=== PATIENT | male | born 1950 | race Caucasian/White ===

== ENCOUNTER 2022-11-21 13:02 | Emergency (ER) | payer OTHER, SELFPAY ==
--- NOTE | 2022-11-21 13:09 | W.ED.GENAD ---
Discharge Plan Disposition Patient Disposition: Home Discharge Details Clinical Impression: Inguinal hernia, left, Acute lactic acidosis, New onset type 2 diabetes mellitus Primary Care Provider: Mary Lou Trevino V ED Provider: Dg Paris Home Meds and New Rx's Prescriptions: New metformin 500 mg tablet 500 mg PO BID Qty: 60 0RF Discharge Instructions Instructions: Basic Carbohydrate Counting (DC), Meal Planning with Diabetes Exchanges (DC) Additional Instructions: Please read all of the information that accompanies these instructions. You were seen in the emergency department for your abdominal pain. Your CAT scan shows that you have signs of a hernia but no sign of any dangerous complications from your hernia at the moment. You are also found to have diabetes for which you should take this new medication as directed. If you develop diarrhea nausea or vomiting or cannot handle this medication please discontinue. Please schedule an appointment with your primary care provider next week. Please return to the emergency department if your left inguinal hernia causes you to have acute severe pain that does not stop, if you notice any skin changes over your hernia, or if you begin developing nausea and vomiting that does not stop. Medical Decision Making This is an overall well-appearing normothermic and not tachycardic 72-year-old male with left inguinal tenderness and known hernia concerning for intermittent obstruction. Patient has not been vomiting so I do not feel that he is acutely obstructed as result of incarceration. No skin changes to suggest strangulated hernia. No rash to suggest zoster. No history of diabetes nor any scrotal tenderness to suggest Jailyn's gangrene. No history of ureterolithiasis although this is certainly in the differential so we will obtain a CT scan. No dysuria nor frequency to suggest UTI. No history of trauma to suggest bleeding. Diverticulitis is also in the differential given left lower quadrant tenderness. No left upper quadrant tenderness to suggest splenic arterial aneurysm. No shortness of breath nor cough to suggest pneumonia. 1:45 PM CBC with no anemia thrombocytopenia nor leukocytosis. Mild lactic acidosis at 1.7 mmol/L. 2 PM Labs notable for marked hyperglycemia. No anion gap to suggest DKA. Normal renal function. We will add on hemoglobin A1c. 2:40 PM Hemoglobin A1c returned at 11.4% consistent with diabetes. We will reach out to the patient's PCP, . Concerning the note above patient does now have diabetes. He is not having any scrotal tenderness to suggest Jailyn's gangrene and his CAT scan is reassuring against foreign years. 2:54 PM Patient's PCP was unfortunately not available. Patient had not seen his PCP reportedly since 2000. I spoke with Cuco Plasencia with nurse from the patient's PCP office at [facility]. I advised her that I was going to start the patient on metformin 500 mg twice daily. I have asked Mara to help arrange close outpatient follow-up for the patient. I met with the patient and advised him of return indications for incarceration and strangulation. I also advised that he would need to begin adhering to a diabetic diet and I counseled him on low carbohydrates and provided him with discharge instructions for diabetic diet. I advised him of the side effects of metformin including diarrhea nausea and vomiting. I advised that if he was intolerant of this medication at he should discontinue it but follow-up with his PCP. I also advised that he return to the emergency department if he had any sudden worsening of his abdominal pain, began vomiting or had any skin changes in his left lower quadrant. 3:15 PM I spoke to Dr. Guerrero from general surgery and she was amenable to help to arrange outpatient follow-up for this patient. I have asked for neonatal intensive care nurse or certified social workers in health care to come to meet with the patient concerning his new diagnosis of diabetes. Unfortunately none of the current care managers our nurse educators. There is a certified social workers in health care who has been paged but it is Thursday afternoon and my suspicion is that the certified social workers in health care has left for the weekend. If I do not hear back from the certified social workers in health care by 3:30 PM I will put the patient up for discharge. 3:30 PM Unfortunately a certified social workers in health care was not available so the patient was discharged in the ED. HPI General Date/Time Provider Initiated Documentation: 11/21/22 13:09. HPI Narrative: This is a 72-year-old male with a history of left inguinal hernia now with left lower quadrant pain for the past approximately 1 week. He was diagnosed with a left inguinal hernia 15 years ago. He has not had a repair of this hernia however at age 11 he had a right inguinal hernia that was surgically corrected. He also has remotely had an appendectomy at the age of 14. He last ate at 10 AM this morning. He has not been nauseous vomiting nor had any fevers diarrhea dysuria nor frequency. He has not noticed any skin changes. He has not had any scrotal tenderness. He says that his left lower quadrant pain radiates into his left buttocks. He did not take any falls. Related Data Home Medications Medication Instructions Recorded Confirmed metformin 500 mg tablet 500 mg PO BID #60 tabs 11/21/22 Previous Rx's Medication Instructions Recorded metformin 500 mg tablet 500 mg PO BID #60 tabs 11/21/22 Allergies Allergy/AdvReac Type Severity Reaction Status Date / Time No Known Allergies Allergy Unverified 11/21/22 13:17 [facility] All Active Problems (Updated 11/21/22 @ 14:42 by Dg Paris MD) Inguinal hernia, left (Acute) Acute lactic acidosis (Acute) New onset type 2 diabetes mellitus (Acute) Surgical History (Updated 11/21/22 @ 13:17 by Analilia Merino RN) History of appendectomy age 14 History of hernia repair age 11 Social History Smoking/Tobacco Use Status: Never Smoking risk assessment performed?: Yes Alcohol Intake: never Substance use type: does not use Do you feel safe at home: Yes Do you feel safe in your relationship?: Yes Exam Narrative Exam Narrative: General: Well-appearing in no acute distress speaking in complete sentences. Head: Normocephalic, atraumatic. Eye: Pupils equal, round reactive to light. Extraocular eye movements intact. No conjunctival injection. No scleral icterus. Ear, nose, mouth, throat: Grossly normal inspection. Normal voice, handling secretions normally. Neck: Trachea midline. Cardiovascular: Well-perfused distal extremities. Regular rate and rhythm Respiratory: Nonlabored respiration. Clear lungs bilaterally Gastrointestinal: Nondistended abdomen. Left inguinal fullness. No obvious reducible hernia. No obvious skin changes. No rash to abdomen. Patient does have left lower quadrant tenderness on deep palpation. No rebound. No guarding. Musculoskeletal: No edema. Moving all 4 extremities spontaneously. Skin: Normal for age and race, grossly normal temperature and turgor. No acute rash. Neurologic: Alert and appropriate, no apparent acute deficits. Psychiatric: Mood and manner are appropriate. Grooming and personal hygiene are appropriate. POCUS Exam (ED) Limited Pelvic Exam DATE OF EXAM: 11/21/22 TIME OF EXAM: 13:40 IS THIS A REPEAT EXAM DURING THIS ENCOUNTER: No Type of Exam: Pelvic Trans Abdominal Exam (Concern for inguinal hernia) REASON FOR EXAM: Pelvic Pain PERTINENT FINDINGS/IMPRESSION: Other (No obvious inguinal hernia) impression: No obvious inguinal hernia Exam Complete
[2022-11-21 13:10] VITALS: BP 102/81; PULSE 90; RESP 20; TEMP 36.9; O2SAT 97
--- NOTE | 2022-11-21 13:15 | DI.CT_ITS ---
Exam(s) CT ABDOMEN PELVIS W EXAM: CT ABDOMEN PELVIS W CLINICAL HISTORY: Left inguinal pain radiating into buttocks. TECHNIQUE: Imaging Protocol: Axial computed tomography images with coronal and sagittal reformatted images were created and reviewed CONTRAST MATERIAL: Intravenous: Omnipaque 350 Contrast volume:100 ml Oral: no COMPARISON: US POCUS EXAM from 11/21/2022 FINDINGS: ABDOMEN: Lung Bases: Normal where visualized. Liver: Enlarged fatty liver.. No measurable mass. Gallbladder and biliary tract: Gallbladder contracted. No radiodense calculus or dilation. Pancreas: Normal density, no abnormal calcifications or inflammatory process. Spleen: Normal. Kidneys: Normal size, contour and axis. No radiodense stones or obstructive uropathy. No suspicious m asses seen. Adrenal glands: No masses seen. Abdominal Aorta: Abdominal portion non-dilated. Soft tissues: Fatty containing left inguinal hernia. PELVIS: Bladder: Urinary bladder is distended. No gross wall thickening. No calculi.No focal mass. Bowel: Diverticulosis. No evidence of diverticulitis. No obstruction. No bowel wall thickening. N o evidence of appendicitis. Peritoneal cavity: No ascites, collection or mesenteric inflammatory response. Bones: Degenerative changes in the spine. Reproductive organs: Enlarged prostate. Lymph nodes: Unremarkable. Impression: Fatty containing left inguinal hernia. Enlarged prostate and distended urinary bladder. Diverticulosis. No evidence of diverticulitis. Findings called to Dr. Paris of the emergency department. RADIATION DOSE DELIVERED: 780.9mGy.cm Total DLP DATA REPOSITORY: All CT scans at this facility are submitted to the National Radiology Data Registry (NRDR) Dose Index Registry (DIR) with the [employer] (ACR). RADIATION OPTIMIZATION: All CT scans at this facility use at least one of these dose optimization te chniques: automated exposure control; mA and/or kV adjustment per patient size (includes targeted exa ms where dose is matched to clinical indication); or iterative reconstruction.
[2022-11-21 13:37] LABS: Lactate 1.7 mmol/L (0.6-1.4)
[2022-11-21] MEDS: ACETAMINOPHEN 1,000 MG/100 ML BTL 400 MG IVPB (13:38)
[2022-11-21 13:40] LABS: Abs Immature Grans 0.01 10^3/uL (0.0-0.06); Absolute Basophil Count 0.03 10^3/uL (0.0-0.2); Absolute Eosinophil Count 0.13 10^3/uL (0.0-0.7); Absolute Lymphocyte Count 1.74 10^3/uL (1.2-3.4); Absolute Monocyte Count 0.58 10^3/uL (0.1-0.8); Absolute Neutrophil Count 3.15 10^3/uL (1.2-6.7); Basophils % 0.5; Eosinophils % 2.3; HCT 46.6 % (40.0-50.0); HGB 16.1 g/dL (13.5-17.5); Immature Grans % 0.2; Lymphocytes % 30.9; MCHC 34.5 % (32.0-36.0); MCV 84 fL (80-95); MPV 8.8 fL (8.0-11.0); Monocytes % 10.3; Neutrophils % 55.8; Platelet Count 214 10^3/uL (130-400); RBC 5.56 10^6/uL (4.36-5.78); RDW 12.8 % (11.8-14.1); RDW-SD 39.1 fL; WBC 5.64 10^3/uL (4.4-10.8)
[2022-11-21 13:57] LABS: Anion Gap 8.4 mmol/L (3-11); BUN 16 mg/dL (7-18); CO2 26.6 mmol/L (21.0-32.0); CREATININE 0.8 mg/dL (0.70-1.30); Calcium 9.6 mg/dL (8.5-10.1); Chloride 104 mmol/L (98-107); Estimated GFR 95.21 (mL/min/1.73m2); Glucose 356 mg/dL (74-106); Potassium 3.9 mmol/L (3.5-5.1); Sodium 139 mmol/L (136-145)
[2022-11-21] MEDS: Normal Saline 500 ML 250 ML IV (14:00)
[2022-11-21] MEDS: Normal Saline - Diluent 50 ML VIAL IJ (14:17)
[2022-11-21] MEDS: Omnipaque 350 MG/ML 500 ML BTL-Imaging package 100 ML IJ (14:18)
[2022-11-21] MEDS: Normal Saline Flush 10 ML SYR IVP (14:19)
[2022-11-21 14:34] LABS: Hemoglobin A1C 11.4 % (<5.7)
[2022-11-21 15:51] VITALS: BP 124/88; PULSE 85; RESP 18; O2SAT 98
== END 2022-11-21 15:57 | disposition home or self-care (01) ==
PROVIDERS: Emergency Provider Emergency Medicine; PCP Family Medicine
DX: K40.90 Unilateral inguinal hernia, without obstruction or gangrene, not specified as recurrent (principal); E87.21 Acute metabolic acidosis; E11.65 Type 2 diabetes mellitus with hyperglycemia; Z79.84 Long term (current) use of oral hypoglycemic drugs; Z90.49 Acquired absence of other specified parts of digestive tract
CPT/HCPCS: 80048; 96361; 96365; 99285; 74177; 83036; 83605; 85025; 99284; J0131

== ENCOUNTER 2023-01-28 06:03 | Day surgery (SDC) | payer OTHER, SELFPAY ==
[2023-01-28] VITALS (11 sets, daily range): BP systolic 96–149; BP diastolic 62–96; PULSE 54–77; RESP 14–95; TEMP 36–36.7; O2SAT 95–99; BMI 21.6
--- NOTE | 2023-01-28 06:27 | HPE_ITS ---
Assessment and Plan Assessment and plan (1) Right inguinal hernia: Status: Acute Assessment and plan: Mr. Del Angel is doing well today. Risks, benefits and complications have been reviewed. Complications include but are not limited to bleeding, infection, injury to vas, vessels and nerves, injury to bowel, recurrence (3-5%), chronic pain and adverse reaction to medications. Questions were entertained and answered to their satisfaction and they wished to proceed.? I did discuss with him that because of his newly diagnosed diabetes and high hemoglobin A1c he is at higher risk for infection and recurrence.? He is definitely working on his diet and using the metformin. He wished to proceed with LIH repair with mesh History of Present Illness Narrative: From Office note: Mr. Del Angel is a pleasant 72-year-old gentleman who was diagnosed with a left inguinal hernia about 15 years ago.? It never really bothered him until November 14.? He states that he went to bed on the without pain and then woke up the next day with a lump and pain in his left groin.? The pain radiated to his left hip, back and down his leg.? He went to the emergency department where no incarceration was diagnosed.? He was diagnosed with new onset diabetes.? He has been started on metformin and is on a diabetic diet.? His is a diabetic as well so she makes sure that he is on a low-carb diet.? He is having some diarrhea with the metformin.? He still works 4 days a week.? He does have to do some heavy lifting.? He has been on light duty at work since being seen in the emergency department.? He is having some mild discomfort now which radiates to the hip and back.? He is aware of the hernia at all times.? He is wearing a hernia belt while at work.? He has been checking his blood sugars now couple of times a day.? His blood sugars have been well below 200 unless he eats a big sandwich and then they will be above that.? He has been trying hard to stay on a low-carb diet. He did have a right inguinal hernia repair as a child.? He has no symptoms on the right side. He denies shortness of breath with activity or chest pain with activity. He was seen in [facility] on the day of his procedure. He is doing well. He has had no new symptoms since I saw him. No chest pain and no SOB. Review of Systems All systems reviewed & are unremarkable except as noted in HPI and below PFSH All Active Problems Right inguinal hernia (Acute) Medical History Acute lactic acidosis Surgical History History of appendectomy age 14 History of hernia repair age 11 Social History Smoking/Tobacco Use Status: Never Smoking risk assessment performed?: Yes Alcohol Intake: current Alcohol Intake frequency: holidays/special occasions only Alcohol type: beer Drug use: Never Substance use type: does not use Housing: house Current gender identity: male Do you feel safe at home: Yes (unable to assess privately) Do you feel safe in your relationship?: Yes Meds Allergies and Home Medications Allergies Allergy/AdvReac Type Severity Reaction Status Date / Time No Known Allergies Allergy Unverified 01/28/23 06:32 Home Medications Medication Instructions Recorded Confirmed Type Lysulin 6 cap PO DAILY 01/23/23 01/28/23 History Pharmapure Sugar Trin[place] 1 tab PO TID 01/23/23 01/28/23 History chromium 1,000 mcg tablet 1,000 mcg PO DAILY 01/23/23 01/28/23 History cinnamon bark 500 mg capsule 1,000 mg PO BID 01/23/23 01/28/23 History (Cinnamon) fenugreek seed 610 mg capsule 610 mg PO DAILY 01/23/23 01/28/23 History mmtidxgl-umjutoel-yhaxs acid 120 1 tab PO BID 01/23/23 01/28/23 History mcg-lutein 100 mcg-herb no.329 tablet (Alive Diabetic Multivitamin) Exam Const General: cooperative, comfortable and no acute distress Orientation: alert and oriented x3 HENMT Head: normocephalic and atraumatic Resp Effort & Inspection: normal respiratory effort Cardio Rate: regular rate Rhythm: regular rhythm GI Inspection: normal to inspection Palpation: soft and hernia (left inguinal hernia)
--- NOTE | 2023-01-28 06:33 | ROE_ITS ---
Date of service: 01/28/23 Time of Service: 12:11 Operative Note Operative Note DATE OF PROCEDURE: 01/28/23 PRE-OP DIAGNOSIS: LIH PROCEDURE: LIH repair with mesh SURGEON: Ayanna Kemp ESCROW CLERK: Claudia French Refer to Anesthesia Record COMPLICATIONS: None Patient was transported to: PACU Patient's condition: stable Implants: BARD Mesh- LOT- [id number] 2027-03-23 Indications: Mr. Del Angel is a pleasant 72 year old male with a reducible RIH. I saw him in the office and again today in [facility] and reviewed the procedure and the complications. Risks, benefits and complications have been reviewed. Complications include but are not limited to bleeding, infection, injury to vas, vessels and nerves, injury to bowel, recurrence (3-5%), chronic pain and adverse reaction to medications. Questions were entertained and answered to their satisfaction and they wished to proceed.? I did discuss with him that because of his newly diagnosed diabetes and high hemoglobin A1c he is at higher risk for infection and recurrence.? He is definitely working on his diet and using the metformin. Findings: Large directed hernia defect Procedure Description: After informed consent was obtained the patient was taken to the operating ro om and placed in a supine position. Monitors and SCDs were applied and a timeout was done. The patient's name, date of , procedure type, procedure site, allergies to medications, preoperative antibiotic, and DVT prophylaxis were all reviewed. Fire risk was assessed. Next anesthesia did a tap block on the left side under ultrasound guidance. Please see their separate dictation. Once anesthesia was done the abdomen was prepped and draped in a sterile surgical fashion. 0.25% Bupivocaine was injected into the dermis in the left lower quadrant. An incision was made with a 10 blade in the left lower quadrant. Dissection was done with cautery through the subcutaneous tissues and Francisco's fascia down to the external oblique fascia. The external ring was identified and the external oblique fascia was opened sharply through the external ring. The cut fascia was grasped with hemostats the cord structures were identified and a Sugar drain was placed around them. The ilioinguinal nerve was identified and cut. The cremasteric muscle was dissected away from the cord structures using both cautery and blunt dissection. There was a large direct hernia defect. No idirect defect was identified. A flat piece of mesh was then attached to the lacunar ligament using a 2-0 Prolene double armed suture. The mesh was secured laterally and medially with a 2-0 Prolene, with a running suture. The tails of the mesh were wrapped around the cord structures effectively cinching down the internal ring. Once the mesh was secured the tissues were irrigated with some normal saline. No bleeding was identified. The external oblique fascia was reapproximated using 2-0 Vicryl running suture. The Francisco's fascia was reapproximated using interrupted 3-0 Vicryl. The dermis was reapproximated with a running 4-0 Vicryl. The skin was cleaned and dried and skin affix was applied. The patient was woken up and taken back to recovery in stable condition. There were no immediate complications. Sponge, instrument and needle counts were correct at the end of the case x2.
--- NOTE | 2023-01-28 06:36 | W.PM.DSUDISC ---
Date of service: 01/28/23 Time of Service: 10:21 Discharge Plan Disposition Patient Disposition: Home Condition: Stable Discharge Details Reason For Visit: RIH repair Attending Provider: Ayanna Kemp Primary Care Provider: Mary Lou Trevino V Home Meds and New Rx's Prescriptions: New tramadol 50 mg tablet 50 mg PO Q6H PRNQty: 10 0RF Continued Lysulin 6 cap PO DAILY chromium 1,000 mcg Tablet 1,000 mcg PO DAILY cinnamon bark [Cinnamon] 500 mg Capsule 1,000 mg PO BID Alive Diabetic Multivitamin 120-100 mcg Tablet 1 tab PO BID fenugreek seed 610 mg Capsule 610 mg PO DAILY Pharmapure Sugar [place] 1 tab PO TID taurine 1,000 mg Capsule 1,000 mg PO BID Discharge Instructions Instructions: Inguinal Hernia Repair (DC) Additional Instructions: Activity at Home after surgery: 1. Make sure you walk outside at least 4 times per day 2. You should be able to climb a flight of stairs 3. No driving while in pain or taking pain medications 4. No strenuous activity or heavy lifting ( more then 5-10 lb) for 4 weeks (open surgery) Diet, Nutrition, & wound healin. Avoid alcohol until after you are recovered from your surgery 2. Make sure to eat plenty of lean protein (meat, fish, eggs, cottage cheese, beans) 3. Eat a variety of fruits and vegetables. Eat plenty of high fiber foods to avoid constipation. 4. Drink plenty of liquids to stay hydrated and avoid constipation Pain Medications: 1. Tylenol 650mg every 6 hours as needed and Ibuprofen 600 mg every 6 hours as needed. You may alternate between the 2 medications every 3 hours 2. If a narcotic has been prescribed take as directed only for breakthrough pain For Constipation: 1. Take Milk of Magnesia or MiraLax as needed for constipation Other: 1. You may shower daily. Do not scrub the incisions 2. Do not soak the incisions for 1 week 3. You may alternate ice and heat as needed for pain and swelling Wound Care: 1. Keep the incisions clean and dry Please call our office if you develop: 1. Fevers >101.5 2. Nausea or Vomiting 3. Worsening pain 4. Redness and thick discharge from the wounds If after hours please call the Hospital at and ask to speak to the on-call surgeon Stand Alone Forms: Anesthesia Discharge InstGeovanni, Nerve Block Instructions, Rome Capone (DSU) Referrals: Ayanna Kemp MD [ [facility] STAFF PHYSICIAN] - 02/09/23 9:30 am Activity:: as above Shower/Bathe:: 24 hours Diet:: As Tolerated Discharge Orders Discharge Orders: Discharge Order (Routine); Ordered 01/28/23 Ordered By: Ayanna Kemp DS: Diagnosis Discharge Diagnosis (1) Right inguinal hernia: Status: Acute Asessment and Plan: The patient is doing well post-op from their Left inguinal hernia surgery.? They are having no nausea or vomiting. They are tolerating liquids and a snack. The pt is not having any chest pain or SOB.? Their pain is adequately controlled. They have been able to urinate.? ?HEENT:? no eye pain/drainage/redness/swelling. Mild sore throat ?Cardio- NSR, no chest pain, BP stable- see VS record ?Pulm: no sob or productive cough. No hemoptysis ?Incision- dressing is c/d/i w/ no excessive bleeding or drainage ?I discussed with the patient the findings at the time of surgery and the patient?s progress. ?We reviewed expectations at home; what the patient could expect for recovery time, and in the post-operative period.? We discussed the importance of walking to avoid blood clots and pneumonia.? We discussed and reviewed the patient's post-operative wound care and dressing needs.?? We reviewed their step-duvall pain management plan, Rx called to the pharmacy of their choice.? We reviewed activity and limitations-see discharge instructions. We reviewed warning signs, and when to seek medical attention- see d/c instructions.?? Patient was given a postoperative follow-up appointment. Patient verbalized understanding of their postoperative instructions, how do to take care of themselves and their incision, and the pain management plan. Please see discharge instructions.?
[2023-01-28] MEDS: Celecoxib 200 MG CAP PO (06:45)
[2023-01-28] MEDS: Acetaminophen 500 MG TAB 1000 MG PO (06:45)
[2023-01-28] MEDS: Gabapentin 300 MG CAP 600 MG PO (06:45)
--- NOTE | 2023-01-28 06:54 | W.ANESPRE ---
General Info Date of Service Date Performed: 01/28/23 Height: 5 ft 9 in Weight: 66.4 kg Body Mass Index (BMI): 21.6 Surgical Procedure: Operation Date: 01/28/23 07:40 Proposed Procedure Side Surgeon p Herniorrhaphy Inguinal Left Ayanna Kemp MD Meds Allergies and Home Medications Allergies Allergy/AdvReac Type Severity Reaction Status Date / Time No Known Allergies Allergy Unverified 01/28/23 06:32 Home Medication Medication Instructions Recorded Lysulin 6 cap PO DAILY 01/23/23 Pharmapure Sugar [place] 1 tab PO TID 01/23/23 chromium 1,000 mcg tablet 1,000 mcg PO DAILY 01/23/23 cinnamon bark 500 mg capsule 1,000 mg PO BID 01/23/23 (Cinnamon) fenugreek seed 610 mg capsule 610 mg PO DAILY 01/23/23 pcaightl-[id number]-[id number] acid 120 1 tab PO BID 01/23/23 mcg-lutein 100 mcg-herb no.329 tablet (Alive Diabetic Multivitamin) taurine 1,000 mg capsule 1,000 mg PO BID 01/28/23 Current Visit Medications: Current Medications Generic Name Dose Route Start Last Admin Trade Name Freq PRN Reason Stop Dose Admin Acetaminophen 1,000 mg 01/28/23 06:00 01/28/23 06:45 Acetaminophen 500 Mg Tab PO 02/22/23 23:59 1,000 mg PREOP GIAN Administration Celecoxib 200 mg 01/28/23 06:00 01/28/23 06:45 Celecoxib 200 Mg Cap PO 02/22/23 23:59 200 mg PREOP GIAN Administration Gabapentin 600 mg 01/28/23 06:00 01/28/23 06:45 Gabapentin 300 Mg Cap PO 02/22/23 23:59 600 mg PREOP GIAN Administration Ringer's Solution 1,000 mls @ 80 mls/hr 01/28/23 06:00 IV 02/22/23 23:59 INFUSION GIAN Cefazolin Sodium/Dextrose 2 gm in 50 mls @ 100 mls/hr 01/28/23 06:00 Ancef Duplex IVPB 02/22/23 23:59 PREOP GIAN Ondansetron HCl 4 mg/ Sodium 52 mls @ 200 mls/hr 01/28/23 06:38 Chloride IVPB 02/27/23 06:37 Q6H PRN PRN IV Miscellaneous Supplies 1 each 01/28/23 06:00 Iv Access IV 02/22/23 23:59 DIRECTED GIAN Ibuprofen 600 mg 01/28/23 06:38 Ibuprofen 600 Mg Tab PO 02/27/23 06:37 Q6H PRN PRN Pain Sodium Chloride 0 ml 01/28/23 06:00 Normal Saline Flush 10 Ml Syr IV 02/22/23 23:59 PRN PRN Sodium Chloride 0 ml 01/28/23 06:00 Normal Saline 10 Ml Vial IJ 02/22/23 23:59 DIRECTED PRN Sterile Water 0 ml 01/28/23 06:00 Water,Injection,Sterile 10 Ml Vial IJ 02/22/23 23:59 DIRECTED PRN Tramadol HCl 50 mg 01/28/23 06:38 Tramadol 50 Mg Tab PO 02/27/23 06:37 Q6H PRN PRN Pain PFSH Active Problems Active Problems: Problem Status Onset Code Right inguinal hernia K40.90 Medical History Medical History Acute lactic acidosis Surgical History Surgical History History of appendectomy age 14 History of hernia repair age 11 Tobacco Smoking/Tobacco Use Status: Never Alcohol Alcohol Intake: current Alcohol intake frequency: holidays/special occasions only Alcohol type: beer Substance Use Substance use: Never Substance use type: does not use Vital Signs and Lab Results Vital Signs Most Recent Vital Signs in EMR: Most Recent Vital Signs Temp Pulse Resp BP Pulse Ox 36.3 C L 77 16 126/82 99 01/28/23 06:23 01/28/23 06:23 01/28/23 06:23 01/28/23 06:23 01/28/23 06:23 Lab Results Blood Type / Crossmatch: No Data to Display Complete Blood Count: No Data to Display Complete Metabolic Panel: No Data to Display Liver Function Panel: No Data to Display Coagulation Panel: No Data to Display Cardiac Panel: No Data to Display Arterial Blood Gas: No Data to Display Venous Blood Gas: No Data to Display Pancreas Panel: No Data to Display Thyroid Panel: No Data to Display Infectious Disease: No Data to Display Blood Cultures: No Data to Display Toxicology Panel: No Data to Display Anesthesia Assessment and Plan Anesthesia History Personal History: No History of Anesthesia Complications Family History: No Family History of Anesthesia Complications Exercise Tolerance Exercise Tolerance: Metabolic Equivalents>4 Pertinent Negatives Pertinent Negatives: No Symptoms of GERD, No Major Cardiovascular Symptoms or Complaints, No Major Pulmonary Symptoms or Complaints and No History of CVA/TIA Cardiac & Pulmonary Exam Cardiac Exam: Normal S1/S2 Heart Sounds Pulmonary Exam: Clear Bilateral Breath Sounds Implantable Cardiac Device Does patient have a Pacemaker or an ICD?: No Airway Exam Known Difficult Airway: No Mallampati Class: 3 Mouth Opening: Normal (> 3cm) Thyromental Distance: Greater than 3 cm Neck Range of Motion: Full ROM Neck Circumference: Normal Teeth Condition: Normal Dentition and Generalized Poor Dentition Tooth Numberin. missing 2. missing 3. missing 4. missing ASA Classification ASA Score: ASA 2 Emergency Case?: No NPO Status NPO Status: NPO Clears >2 hours, Solids >8 hours Anesthesia Plan Resuscitation Status: Full Code Anesthesia Technique: General Anesthesia Airway Planned: LMA Monitors Used: Standard Monitors Preoperative Comments:: Seizure disorder controlled with nightly taurine
[2023-01-28] MEDS: Lactated Ringers 1,000 ML 80 ML IV (07:09)
[2023-01-28] MEDS: ceFAZolin 2 GM/50 ML BAG IVPB (07:46)
--- NOTE | 2023-01-28 08:00 | W.ANESNERVE ---
Nerve Block Single Injection Procedure Date and Time Date Performed: 01/28/23 Procedure Start: 07:50 Location Where Procedure Performed Procedure Location: Operating Room Procedure Stop: 07:58 Reason Performed: Postoperative Analgesia Requesting Provider: Ayanna Kemp Timeout Performed Timeout Performed: Yes Monitoring Used ECG, Blood Pressure, SpO2 and ETCO2 Sterility Sterility: Hand Hygiene, Surgical Cap, Surgical Mask, Sterile Gloves and Chlorhexidine Sedation Given During Procedure Sedation Given (Indicate Dose Given): No Sedation given Patient Mental Status Patient Mental Status: Performed under general anesthesia Nerve Block 1st Nerve Block: Laterality: Left Block Type: TAP Unilateral Ultrasound Image Saved?: Yes Needle / Catheter Used: 100mm SonoPlex II Local Anesthetic Bolus (Indicate Dose Given): Injected in 3-5ml increments after negative blood aspiration and Bupivacaine 0.25% Dose:: 20 ml Additives (Indicate Dose Given): Normal Saline Ultrasound: Sterile probe cover and gel used Nerve Stimulator: Not Used Paresthesia: None Procedure Tolerated: No Complications and Patient tolerated well Procedure Outcome: Successful Performed By: Vimal Prakash
[2023-01-28] MEDS: Bupivacaine 0.25% Pres-Free 30 ML VIAL (08:38)
--- NOTE | 2023-01-28 09:49 | W.ANESNERVE ---
Nerve Block Single Injection Procedure Date and Time Date Performed: 01/28/23
--- NOTE | 2023-01-28 11:31 | W.ANESPOSTOP ---
Postoperative Evaluation Date, Time and Location Date Performed: 01/28/23 Time Performed: 11:31 Patient Location: Day Surgery Unit Vital Signs Most Recent Imported Vital Signs: Most Recent Vital Signs Temp Pulse Resp BP Pulse Ox 36 C L 66 16 132/80 99 01/28/23 11:02 01/28/23 11:02 01/28/23 11:02 01/28/23 11:02 01/28/23 11:02 Pain Score Most Recent Pain Score: Most Recent Pain Score Pain Level 2 01/28/23 11:02 Assessment Mental Status: Awake (Alert & Oriented to Patient Baseline) Airway and Respiratory Function: Patent airway with normal (patient baseline) respiratory exam Cardiovascular Function: Hemodynamically Stable Hydration Status: Adequately Hydrated Nausea & Vomiting: No Nausea or Vomiting Pain: Pt. Denies Any Pain Peripheral Nerve Block: Regional nerve block not resolved at time of post operative discharge
== END 2023-01-28 11:13 | disposition home or self-care (01) ==
PROVIDERS: PCP Family Medicine; Visit Provider Surgery
PROC: (CPT 49505; principal; 2023-01-28 07:30)
DX: K40.90 Unilateral inguinal hernia, without obstruction or gangrene, not specified as recurrent (principal); E11.9 Type 2 diabetes mellitus without complications; Z79.84 Long term (current) use of oral hypoglycemic drugs
CPT/HCPCS: 49505; 76942; C1781; J0690; J1100; J1885; J2405

== ENCOUNTER 2023-02-13 15:39 | Outpatient (REF) | payer OTHER, SELFPAY ==
[2023-02-13 15:34] LABS: Hemoglobin A1C 6.7 % (<5.7)
[2023-02-13 15:52] LABS: ALT 29 U/L (16-63); AST 19 U/L (15-37); Albumin 3.6 g/dL (3.4-5.0); Alkaline Phosphatase 68 U/L (46-116); Anion Gap 9.4 mmol/L (3-11); BUN 19 mg/dL (7-18); Bilirubin, Total 0.4 mg/dL (0.2-1.0); CO2 27.6 mmol/L (21.0-32.0); CREATININE 0.7 mg/dL (0.70-1.30); Calcium 9.4 mg/dL (8.5-10.1); Calculated LDL 117 mg/dL (<100); Chloride 104 mmol/L (98-107); Cholesterol 215 mg/dL (<200); Estimated GFR 99.12 (mL/min/1.73m2); Glucose 150 mg/dL (74-106); HDL Cholesterol 42 mg/dL (40-60); Potassium 4.5 mmol/L (3.5-5.1); Sodium 141 mmol/L (136-145); Total Protein 7.2 g/dL (6.4-8.2); Triglyceride 282 mg/dL (<150)
[2023-02-13 16:02] LABS: Vitamin D 25 Total 63.9 ng/mL (30-100)
== END 2023-02-13 15:40 | disposition home or self-care (01) ==
LOC: NCHCN 15:39
PROVIDERS: PCP Family Medicine; Visit Provider Nurse Practitioner Family
DX: Z00.00 Encounter for general adult medical examination without abnormal findings (principal); E11.9 Type 2 diabetes mellitus without complications; Z79.84 Long term (current) use of oral hypoglycemic drugs
CPT/HCPCS: 80053; 80061; 82306; 83036

== ENCOUNTER 2024-03-19 15:29 | Emergency (ER) | payer OTHER, SELFPAY ==
[2024-03-19 15:31] VITALS: PULSE 72; RESP 16; TEMP 36.2; O2SAT 98
--- OUTSIDE RECORDS SUMMARY | 2024-03-19 15:55 | XMS_ITS | Continuity of Care Document ---
Author Organization [facility] Ambulatory Clinics Address [address] [place] [address] Encounter [facility] [facility] NBR [id number] Date(s): 03/04/24 - 03/04/24 [facility] Amb[facility] [address] [place] [address]- Encounter Diagnosis Cerumen impaction(Discharge Diagnosis) - 03/04/24 Discharge Disposition: Home or Self Care Attending Physician: GRIS Francisco Assessment and Plan Extracted from: Title:Office Visit Note Author:GRIS Francisco Date:03/04/24 1.??Cerumen impaction??H61.2 0 ??Patient's symptoms of ear ringing and decreased hearing that resolved after removal. ??Follow-up as needed. Medications Debrox Earwax Removal Kit 6.5% otic solution 5 drops, Ear-Right, BID, # 30 mL, 0 Refill(s), Pharmacy: [id number], 68.04, kg, 02/23/24 12:33:00 EDT, Weight Dosing Start Date: 02/26/24 Status: Ordered Vital Signs Most recent to oldest [Reference Range]: 1 Temperature Tympanic [36.6-38.1 Deg C] 3 6.2 Deg C *LOW* (03/04/24 10:40 AM) Peripheral Pulse Rate [60-100 bpm] 79 bp m (03/04/24 10:40 AM) Blood Pressure [90-140/60-90 mmHg] 137/7 2mmHg (03/04/24 10:40 AM) Mean Arterial Pressure, Cuff [65-140 mmH g] 94 mmHg (03/04/24 10:40 AM) Weight 68.04 kg (03/04/24 10:40 AM) Weight Measured (lbs) 150.002 lb (03/04/24 10:40 AM) Weight Dosing 68.040 kg (03/04/24 10:40 AM) Social History Social History Type Response Tobacco Never tobacco user T obacco Use:. Sex Physician Outpatient Note * GRIS Francisco: PERFORM Event Display: Office Clinic Note Physician Authored Date: [id number] GIL DURANT :1950 Age:73 years Sex:Male Visit Date:03/04/2024 Chief Complaint right ear cerumen impaction, he has been using the ear drops. has been seen for this before. History of Present Illness Patient was seen previously for bilateral cerumen impaction unable to complete remove the right. ??He has been using wax softening drops. ??Notes decreased hearing, ringing.?? Denies pain. Physical Exam Vitals & Measurements T:??36.2?C ??(Tympanic)?? HR:??79??(Peripheral)?? BP:??137/72?? SpO2:??99%?? WT:??68.04??kg?? Well-appearing no acute distress right ear impacted by cerumen. ??This was irrigated. ??Complete removal. Assessment/Plan 1.??Cerumen impaction??H61.20 ??Patient's symptoms of ear ringing and decreased hearing that resolved after removal. ??Follow-up as needed. Problem List/Past Medical History Ongoing No qualifying data Historical No qualifying data Medications Debrox Earwax Removal Kit 6.5% otic solution, 5 drops, Ear-Right, BID Allergies No active allergies Social History Electronic Cigarette/Vaping Electronic Cigarette Use: Never. Tobacco Never tobacco user Tobacco Use:. Electronically Signed on 03/04/2024 11:12 EDT GRIS Francisco Patient Care team information Care Team Related Persons Name: ADDY DRUANT Address: Home [address] [place] [address]
--- OUTSIDE RECORDS SUMMARY | 2024-03-19 15:55 | XMS_ITS | Continuity of Care Document ---
Author Organization [facility] Address [address] [place] [address] Encounter [facility] NBR [id number] Date(s): 02/23/24 - 02/23/24 [facility] [address] [place] [address]- Encounter Diagnosis Cerumen impaction(Discharge Diagnosis) - 02/23/24 Discharge Disposition: Home or Self Care Attending Physician: Digna Curiel PA-C Assessment and Plan Extracted from: Title:Office Visit Note Author:GRIS Cobian Date:02/23/24 1.??Cerumen impaction??H61.2 0 ??Patient presenting with bilateral cerumen impaction. ??The left ear was successfully irrigated to reveal a pearly galloway TM.?? Right ear was partially irrigated but unable to completely clear the impaction. ??He did note improvement in his hearing and ringing in the ear.?? I??recommended that patient purchase pwpc-bgc-ggzstfo Debrox drops and use these for the next 2 to 3 days and return for??attempt at irrigation.?? He agrees with plan. ??He will recheck in the next few days Vital Signs Most recent to oldest [Reference Range]: 1 Peripheral Pulse Rate [60-100 bpm] 94 bp m (02/23/24 12:28 PM) Blood Pressure [90-140/60-90 mmHg] 125/1 12mmHg (02/23/24 12:28 PM) Mean Arterial Pressure, Cuff [65-140 mmH g] 116 mmHg (02/23/24 12:28 PM) Weight 68.04 kg (02/23/24 12:28 PM) Weight Measured (lbs) 150.002 lb (02/23/24 12:28 PM) Weight Dosing 68.040 kg (02/23/24 12:28 PM) Social History Social History Type Response Tobacco Never tobacco user T obacco Use:. Sex Hospital Discharge Instructions Patient Education 02/23/2024 12:46:46 Ear Irrigation Ear Irrigation Ear irrigation is a procedure to wash dirt and wax out of your ear canal. This procedure is also called lavage. You may need ear irrigation if you are having trouble hearing because of a buildup of earwax. You may also have ear irrigation as part of the treatment for an ear infection. Getting wax and dirt out of your ear canal can help ear drops work better. Tell a health care provider about: ??? Any allergies you have. ??? All medicines you are taking, including vitamins, herbs, eye drops, creams, and smjp-ejc-hcxyctm medicines. ??? Any problems you or family members have had with anesthetic medicines. ??? Any blood disorders you have. ??? Any surgeries you have had. This includes any ear surgeries. ??? Any medical conditions you have. ??? Whether you are or may be . What are the risks? Generally, this is a safe procedure. However, problems may occur, including: ??? Infection. ??? Pain. ??? Hearing loss. ??? Fluid and debris being pushed through the eardrum and into the middle ear. This can occur if there are holes in the eardrum. ??? Ear irrigation failing to work. What happens before the procedure? You will talk with your provider about the procedure and plan. ??? You may be given ear drops to put in your ear 15???20 minutes before irrigation. This helps loosen the wax. What happens during the procedure? A syringe is filled with water or saline solution, which is made of salt and water. ??? The syringe is gently inserted into the ear canal. ??? The fluid is used to flush out wax and other debris. The procedure may vary among health care providers and hospitals. What can I expect after the procedure? After an ear irrigation, follow instructions given to you by your health care provider. Follow these instructions at home: Using ear irrigation kits Ear irrigation kits are available for use at home. Ask your health care provider if this is an option for you. In general, you should: ??? Use a home irrigation kit only as told by your health care provider. ??? Read the package instructions carefully. ??? Follow the directions for using the syringe. ??? Use water that is room temperature. Do not do ear irrigation at home if you: ??? Have diabetes. Diabetes increases the risk of infection. ??? Have a hole or tear in your eardrum. ??? Have tubes in your ears. ??? Have had any ear surgery in the past. ??? Have been told not to irrigate your ears. Cleaning your ears ??? Clean the outside of your ear with a soft washcloth daily. ??? If told by your health care provider, use a few drops of baby oil, mineral oil, glycerin, hydrogen peroxide, or dkyw-jib-bubyhvc earwax softening drops. ??? Do not use cotton swabs to clean your ears. These can push wax down into the ear canal. ??? Do not put anything into your ears to try to remove wax. This includes ear candles. General instructions ??? Take aunj-mkh-ppabqit and prescription medicines only as told by your health care provider. ??? If you were prescribed an antibiotic medicine, use it as told by your health care provider. Do not stop using the antibiotic even if your condition improves. ??? Keep the ear clean and dry by following the instructions from your health care provider. ??? Keep all follow-up visits. This is important. ??? Visit your health care provider at least once a year to have your ears and hearing checked. Contact a health care provider if: ??? Your hearing is not improving or is getting worse. ??? You have pain or redness in your ear. ??? You are dizzy. ??? You have ringing in your ears. ??? You have nausea or vomiting. ??? You have fluid, blood, or pus coming out of your ear. Summary ??? Ear irrigation is a procedure to wash dirt and wax out of your ear canal. This procedure is also called lavage. ??? To perform ear irrigation, ear drops may be put in your ear 15???20 minutes before irrigation. Water or saline solution will be used to flush out earwax and other debris. ??? You may be able to irrigate your ears at home. Ask your health care provider if this is an option for you. Follow your health care provider's instructions. ??? Clean your ears with a soft cloth after irrigation. Do not use cotton swabs to clean your ears.These can push wax down into the ear canal. This information is not intended to replace advice given to you by your health care provider. Make sure you discuss any questions you have with your health care provider. Document Revised: 10/30/2020 Document Reviewed: 10/30/2020 [employer] Patient Education ?? 2022 [employer]. 02/23/2024 12:46:45 Earwax Buildup, Adult Earwax Buildup, Adult The ears produce a substance called earwax that helps keep bacteria out of the ear and protects theskin in the ear canal. Occasionally, earwax can build up in the ear and cause discomfort or hearingloss. What are the causes? This condition is caused by a buildup of earwax. Ear canals are self-cleaning. Ear wax is made in the outer part of the ear canal and generally falls out in small amounts over time. When the self-cleaning mechanism is not working, earwax builds up and can cause decreased hearing and discomfort. Attempting to clean ears with cotton swabs can push the earwax deep into the ear canal and cause decreased hearing and pain. What increases the risk? This condition is more likely to develop in people who: ??? Clean their ears often with cotton swabs. ??? Pick at their ears. ??? Use earplugs or in-ear headphones often, or wear hearing aids. The following factors may also make you more likely to develop this condition: ??? Being male. ??? Being of older age. ??? Naturally producing more earwax. ??? Having narrow ear canals. ??? Having earwax that is overly thick or sticky. ??? Having excess hair in the ear canal. ??? Having eczema. ??? Being dehydrated. What are the signs or symptoms? Symptoms of this condition include: ??? Reduced or muffled hearing. ??? A feeling of fullness in the ear or feeling that the ear is plugged. ??? Fluid coming from the ear. ??? Ear pain or an itchy ear. ??? Ringing in the ear. ??? Coughing. ??? Balance problems. ??? An obvious piece of earwax that can be seen inside the ear canal. How is this diagnosed? This condition may be diagnosed based on: ??? Your symptoms. ??? Your medical history. ??? An ear exam. During the exam, your health care provider will look into your ear with an instrument called an otoscope. You may have tests, including a hearing test. How is this treated? This condition may be treated by: ??? Using ear drops to soften the earwax. ??? Having the earwax removed by a health care provider. The health care provider may: ??? Flush the ear with water. ??? Use an instrument that has a loop on the end (curette). ??? Use a suction device. ??? Having surgery to remove the wax buildup. This may be done in severe cases. Follow these instructions at home: ??? Take iswo-cch-csxqgyw and prescription medicines only as told by your health care provider. ??? Do not put any objects, including cotton swabs, into your ear. You can clean the opening of your ear canal with a washcloth or facial tissue. ??? Follow instructions from your health care provider about cleaning your ears. Do not overclean your ears. ??? Drink enough fluid to keep your urine pale yellow. This will help to thin the earwax. ??? Keep all follow-up visits as told. If earwax builds up in your ears often or if you use hearingaids, consider seeing your health care provider for routine, preventive ear cleanings. Ask your health care provider how often you should schedule your cleanings. ??? If you have hearing aids, clean them according to instructions from the vegetable packer and your health care provider. Contact a health care provider if: ??? You have ear pain. ??? You develop a fever. ??? You have pus or other fluid coming from your ear. ??? You have hearing loss. ??? You have ringing in your ears that does not go away. ??? You feel like the room is spinning (vertigo). ??? Your symptoms do not improve with treatment. Get help right away if: ??? You have bleeding from the affected ear. ??? You have severe ear pain. Summary ??? Earwax can build up in the ear and cause discomfort or hearing loss. ??? The most common symptoms of this condition include reduced or muffled hearing, a feeling of fullness in the ear, or feeling that the ear is plugged. ??? This condition may be diagnosed based on your symptoms, your medical history, and an ear exam. ??? This condition may be treated by using ear drops to soften the earwax or by having the earwax removed by a health care provider. ??? Do not put any objects, including cotton swabs, into your ear. You can clean the opening of your ear canal with a washcloth or facial tissue. This information is not intended to replace advice given to you by your health care provider. Make sure you discuss any questions you have with your health care provider. Document Revised: 10/30/2020 Document Reviewed: 10/30/2020 [employer] Patient Education ?? 2022 [employer]. Physician Outpatient Note * Digna Curiel PA-C: PERFORM Event Display: Office Clinic Note Physician Authored Date: [id number] GIL DURANT :1950 Age:73 years Sex:Male Visit Date:02/23/2024 Chief Complaint prone to wax buildup in ears, having a hard time hearing out of both ears, Right ear is wors with ringing, keeping him up at night. Pt denies any pain or other symptoms. History of Present Illness This is a 73-year-old male who presents for evaluation of ringing in the ears and earwax buildup. ??Patient reports that he has had ringing in his ears as well as decreased hearing for the last few days. ??He suspects he has a cerumen impaction. ??He denies any ear pain,??vertigo. ??No headaches. ??No pulsatile tinnitus. Physical Exam Vitals & Measurements HR:??94??(Peripheral)?? BP:??125/112?? SpO2:??98%?? WT:??68.04??kg?? General: Alert and oriented x 3, no acute distress, well-nourished and hydrated Heart: Regular rate and rhythm, no murmurs, rubs, gallops Ears: Bilateral cerumen impaction. ??Left ear successfully irrigated??with use of curette to reveala pearly galloway TM without perforation, erythema.?? Right??ear partially irrigated,??unable to??entirely remove cerumen impaction??to visualize TM Assessment/Plan 1.??Cerumen impaction??H61.20 ??Patient presenting with bilateral cerumen impaction. ??The left ear was successfully irrigated toreveal a pearly galloway TM.?? Right ear was partially irrigated but unable to completely clear the impaction. ??He did note improvement in his hearing and ringing in the ear.?? I??recommended that patient purchase dxnr-oxm-tynptnz Debrox drops and use these for the next 2 to 3 days and return for??attempt at irrigation.?? He agrees with plan. ??He will recheck in the next few days Patient Instructions Unfortunately, after??multiple attempts we were unable to fully remove all of the earwax from the right ear. ??I recommend that you go home and use xwup-mww-jpjvihr Debrox drops. ??Then, return on either or Thursday and we can reattempt??to flush the ear.?? Please follow-up for any ongoing or worsening symptoms Patient Education Ear Irrigation Earwax Buildup, Adult Problem List/Past Medical History Ongoing No qualifying data Historical No qualifying data Medications No active medications Allergies No active allergies Social History Electronic Cigarette/Vaping Electronic Cigarette Use: Never. Tobacco Never tobacco user Tobacco Use:. Electronically Signed on 02/23/2024 14:56 EDT Digna Curiel PA-C Outpatient Summary note * Digna Curiel PA-C: PERFORM Event Display: Ambulatory Patient Summary Authored Date: [id number] GIL DURANT :1950 Age:73 years Sex:Male Visit Date:02/23/2024 Ambulatory Visit Instructions We would like to thank you for allowing us to assist you with your healthcare needs. The following includes patient education materials and information regarding your injury/illness. Your Next Steps Instructions From Your Care Team Unfortunately, after??multiple attempts we were unable to fully remove all of the earwax from the right ear. ??I recommend that you go home and use velr-jbf-qwjjjro Debrox drops. ??Then, return on either or Thursday and we can reattempt??to flush the ear.?? Please follow-up for any ongoing or worsening symptoms Your Summary Your Diagnosis Cerumen impaction Your Care Team Attending Physician - Digna Curiel PA-C Discharge Vitals Heart Rate??(Peripheral) 94 Blood Pressure?? 125/112?? SpO2?? 98% Weight?? 150.03 lb (68.04 kg) Allergies No active allergies Education Materials Ear Irrigation Ear irrigation is a procedure to wash dirt and wax out of your ear canal. This procedure is also called lavage. You may need ear irrigation if you are having trouble hearing because of a buildup of earwax. You may also have ear irrigation as part of the treatment for an ear infection. Getting wax and dirt out of your ear canal can help ear drops work better. Tell a health care provider about: ? Any allergies you have. ? All medicines you are taking, including vitamins, herbs, eye drops, creams, and khgj-pre-fynbgry medicines. ? Any problems you or family members have had with anesthetic medicines. ? Any blood disorders you have. ? Any surgeries you have had. This includes any ear surgeries. ? Any medical conditions you have. ? Whether you are or may be . What are the risks? Generally, this is a safe procedure. However, problems may occur, including: ? Infection. ? Pain. ? Hearing loss. ? Fluid and debris being pushed through the eardrum and into the middle ear. This can occur if there are holes in the eardrum. ? Ear irrigation failing to work. What happens before the procedure? You will talk with your provider about the procedure and plan. ? You may be given ear drops to put in your ear 15???20 minutes before irrigation. This helps loosen the wax. What happens during the procedure? A syringe is filled with water or saline solution, which is made of salt and water. ? The syringe is gently inserted into the ear canal. ? The fluid is used to flush out wax and other debris. The procedure may vary among health care providers and hospitals. What can I expect after the procedure? After an ear irrigation, follow instructions given to you by your health care provider. Follow these instructions at home: Using ear irrigation kits Ear irrigation kits are available for use at home. Ask your health care provider if this is an option for you. In general, you should: ? Use a home irrigation kit only as told by your health care provider. ? Read the package instructions carefully. ? Follow the directions for using the syringe. ? Use water that is room temperature. Do not do ear irrigation at home if you: ? Have diabetes. Diabetes increases the risk of infection. ? Have a hole or tear in your eardrum. ? Have tubes in your ears. ? Have had any ear surgery in the past. ? Have been told not to irrigate your ears. Cleaning your ears ? Clean the outside of your ear with a soft washcloth daily. ? If told by your health care provider, use a few drops of baby oil, mineral oil, glycerin, hydrogen peroxide, or aenb-ghc-ojvffkc earwax softening drops. ? Do not use cotton swabs to clean your ears. These can push wax down into the ear canal. ? Do not put anything into your ears to try to remove wax. This includes ear candles. General instructions ? Take ydqc-tby-xgszynq and prescription medicines only as told by your health care provider. ? If you were prescribed an antibiotic medicine, use it as told by your health care provider. Do not stop using the antibiotic even if your condition improves. ? Keep the ear clean and dry by following the instructions from your health care provider. ? Keep all follow-up visits. This is important. ? Visit your health care provider at least once a year to have your ears and hearing checked. Contact a health care provider if: ? Your hearing is not improving or is getting worse. ? You have pain or redness in your ear. ? You are dizzy. ? You have ringing in your ears. ? You have nausea or vomiting. ? You have fluid, blood, or pus coming out of your ear. Summary ? Ear irrigation is a procedure to wash dirt and wax out of your ear canal. This procedure is also called lavage. ? To perform ear irrigation, ear drops may be put in your ear 15???20 minutes before irrigation. Water or saline solution will be used to flush out earwax and other debris. ? You may be able to irrigate your ears at home. Ask your health care provider if this is an option for you. Follow your health care provider's instructions. ? Clean your ears with a soft cloth after irrigation. Do not use cotton swabs to clean your ears. These can push wax down into the ear canal. This information is not intended to replace advice given to you by your health care provider. Make sure you discuss any questions you have with your health care provider. Document Revised: 10/30/2020 Document Reviewed: 10/30/2020 [employer] Patient Education ?? 2022 [employer] Earwax Buildup, Adult The ears produce a substance called earwax that helps keep bacteria out of the ear and protects theskin in the ear canal. Occasionally, earwax can build up in the ear and cause discomfort or hearingloss. What are the causes? This condition is caused by a buildup of earwax. Ear canals are self-cleaning. Ear wax is made in the outer part of the ear canal and generally falls out in small amounts over time. When the self-cleaning mechanism is not working, earwax builds up and can cause decreased hearing and discomfort. Attempting to clean ears with cotton swabs can push the earwax deep into the ear canal and cause decreased hearing and pain. What increases the risk? This condition is more likely to develop in people who: ? Clean their ears often with cotton swabs. ? Pick at their ears. ? Use earplugs or in-ear headphones often, or wear hearing aids. The following factors may also make you more likely to develop this condition: ? Being male. ? Being of older age. ? Naturally producing more earwax. ? Having narrow ear canals. ? Having earwax that is overly thick or sticky. ? Having excess hair in the ear canal. ? Having eczema. ? Being dehydrated. What are the signs or symptoms? Symptoms of this condition include: ? Reduced or muffled hearing. ? A feeling of fullness in the ear or feeling that the ear is plugged. ? Fluid coming from the ear. ? Ear pain or an itchy ear. ? Ringing in the ear. ? Coughing. ? Balance problems. ? An obvious piece of earwax that can be seen inside the ear canal. How is this diagnosed? This condition may be diagnosed based on: ? Your symptoms. ? Your medical history. ? An ear exam. During the exam, your health care provider will look into your ear with an instrument called an otoscope. You may have tests, including a hearing test. How is this treated? This condition may be treated by: ? Using ear drops to soften the earwax. ? Having the earwax removed by a health care provider. The health care provider may: ? Flush the ear with water. ? Use an instrument that has a loop on the end (curette). ? Use a suction device. ? Having surgery to remove the wax buildup. This may be done in severe cases. Follow these instructions at home: ? Take smsm-haa-odabsqz and prescription medicines only as told by your health care provider. ? Do not put any objects, including cotton swabs, into your ear. You can clean the opening of your ear canal with a washcloth or facial tissue. ? Follow instructions from your health care provider about cleaning your ears. Do not overclean your ears. ? Drink enough fluid to keep your urine pale yellow. This will help to thin the earwax. ? Keep all follow-up visits as told. If earwax builds up in your ears often or if you use hearing aids, consider seeing your health care provider for routine, preventive ear cleanings. Ask your health care provider how often you should schedule your cleanings. ? If you have hearing aids, clean them according to instructions from the vegetable packer and your health care provider. Contact a health care provider if: ? You have ear pain. ? You develop a fever. ? You have pus or other fluid coming from your ear. ? You have hearing loss. ? You have ringing in your ears that does not go away. ? You feel like the room is spinning (vertigo). ? Your symptoms do not improve with treatment. Get help right away if: ? You have bleeding from the affected ear. ? You have severe ear pain. Summary ? Earwax can build up in the ear and cause discomfort or hearing loss. ? The most common symptoms of this condition include reduced or muffled hearing, a feeling of fullness in the ear, or feeling that the ear is plugged. ? This condition may be diagnosed based on your symptoms, your medical history, and an ear exam. ? This condition may be treated by using ear drops to soften the earwax or by having the earwax removed by a health care provider. ? Do not put any objects, including cotton swabs, into your ear. You can clean the opening of your ear canal with a washcloth or facial tissue. This information is not intended to replace advice given to you by your health care provider. Make sure you discuss any questions you have with your health care provider. Document Revised: 10/30/2020 Document Reviewed: 10/30/2020 [employer] Patient Education ?? 2022 [employer] Electronically Signed on: 02/23/2024 13:46 EDTSigned by:EP Patient Care team information Care Team Related Persons Name: ADDY DURANT Address: Home [address] [place] [id number] [facility]
--- OUTSIDE RECORDS SUMMARY | 2024-03-19 15:55 | XMS_ITS | Continuity of Care Document ---
Author Organization [facility] Address [address] [place] [address] Encounter [facility] NBR [id number] Date(s): 02/26/24 - 02/26/24 [facility] [address] [place] [address]- Encounter Diagnosis Cerumen impaction(Discharge Diagnosis) - 02/26/24 Discharge Disposition: Home or Self Care Attending Physician: Lili Montero APRN Assessment and Plan Extracted from: Title:Office Visit Note Author:Lisa Mackey PRN Date:02/26/24 1.??Cerumen impaction??H61.2 0 Ordered: Debrox Earwax Removal Kit 6.5% otic solution, 5 drops, Ear-Right, BID, # 30 mL, 0 Refill(s), Pharmacy: [facility] #[id number], 68.04, kg, 02/23/24 12:33:00 EDT, Weight Dosing ?? Medications Debrox Earwax Removal Kit 6.5% otic solution 5 drops, Ear-Right, BID, # 30 mL, 0 Refill(s), Pharmacy: [facility] #[id number], 68.04, kg, 02/23/24 12:33:00 EDT, Weight Dosing Start Date: 02/26/24 Status: Ordered Vital Signs Most recent to oldest [Reference Range]: 1 Temperature Tympanic [36.6-38.1 Deg C] 3 6.6 Deg C (02/26/24 9:56 AM) Peripheral Pulse Rate [60-100 bpm] 84 bp m (02/26/24 9:56 AM) Blood Pressure [90-140/60-90 mmHg] 128/6 6mmHg (02/26/24 9:56 AM) Mean Arterial Pressure, Cuff [65-140 mmH g] 87 mmHg (02/26/24 9:56 AM) Social History Social History Type Response Tobacco Never tobacco user T obacco Use:. Sex Physician Outpatient Note * Lili Montero, INFORMATION CLERK [employer]: PERFORM Event Display: Office Clinic Note Physician Authored Date: [id number] GIL DURANT :1950 Age:73 years Sex:Male Visit Date:02/26/2024 Chief Complaint Wax in right ears History of Present Illness Patient is a 73-year-old male who presents today for cerumen impaction. ??He reports he was seen a few days ago??for decreased hearing??in the right ear. ??He was told he had a cerumen impaction, hasbeen using zhha-wyf-zwylhup Debrox??over the past few days. Review of Systems see hpi Physical Exam Vitals & Measurements T:??36.6?C ??(Tympanic)?? HR:??84??(Peripheral)?? BP:??128/66?? SpO2:??98%?? Cerumen impaction, no erythema in the canal, no tenderness over the tragus Medical Decision Making: Patient was seen for cerumen impaction,??attempts to irrigate unsuccessful. ??He was provided prescription??strength??Debrox, instructed to utilize this as instructed and return next week??in an attempt to??irrigate again. ??I did state that I would send out a ENT referral??as this is his second visit of unsuccessful??cerumen removal. Assessment/Plan 1.??Cerumen impaction??H61.20 Ordered: Debrox Earwax Removal Kit 6.5% otic solution, 5 drops, Ear-Right, BID, # 30 mL, 0 Refill(s), Pharmacy: [facility] #94, 68.04, kg, 02/23/24 12:33:00 EDT, Weight Dosing ?? Referral Orders Referral Management, Medical Service: ENT, Reason: Cerumen impaction, Start: 02/26/24 Problem List/Past Medical History Ongoing No qualifying data Historical No qualifying data Medications Debrox Earwax Removal Kit 6.5% otic solution, 5 drops, Ear-Right, BID Allergies No active allergies Social History Electronic Cigarette/Vaping Electronic Cigarette Use: Never. Tobacco Never tobacco user Tobacco Use:. Electronically Signed on 02/26/2024 10:21 EDT Lili Montero APRN Patient Care team information Care Team Related Persons Name: ADDY DURANT Address: Home [address] [place] [address]
--- NOTE | 2024-03-19 17:08 | ED.GENADUL_ITS ---
Discharge Plan Disposition Patient Disposition: Home Condition: Stable Discharge Details Clinical Impression: Cellulitis of left ankle Primary Care Provider: Mary Lou Trevino V ED Provider: Kimani Rodriges Home Meds and New Rx's Prescriptions: New amoxicillin-pot clavulanate 875-125 mg tablet 1 tab PO BID Qty: 14 0RF Continued Lysulin 6 cap PO DAILY chromium 1,000 mcg Tablet 1,000 mcg PO DAILY cinnamon bark [Cinnamon] 500 mg Capsule 1,000 mg PO BID Alive Diabetic Multivitamin 120-100 mcg Tablet 1 tab PO BID fenugreek seed 610 mg Capsule 610 mg PO DAILY Pharmapure Sugar Trinidad 1 tab PO TID taurine 1,000 mg Capsule 1,000 mg PO BID Discharge Instructions Additional Instructions: If not improving in a week follow-up with your primary care provider If you feel more ill or have new symptoms such as high fevers return to the emergency department for reevaluation HPI General Mode of arrival: ambulatory . Date/Time Provider Initiated Documentation: 03/19/24 15:46 . Limitations to Documentation: no limitations . Information obtained by: patient . History of Present Illness 73 year old M presents to the emergency department with the chief complaint of left and right ankle abrasions, described as moderate, Quality is described as aching, Patient started experiencing this day(s) (2) and it has been constant. No relieving factors improve symptom(s), No exacerbating factors reported . Patient notes denies chest pain and shortness of breath. Patient did receive the following treatments prior to arrival, none Related Data Home Medications ?Medication ?Instructions ?Recorded ?Confirmed Lysulin 6 cap PO DAILY 01/23/23 03/19/24 Pharmapure Sugar [place] 1 tab PO TID 01/23/23 03/19/24 chromium 1,000 mcg tablet 1,000 mcg PO DAILY 01/23/23 03/19/24 cinnamon bark 500 mg capsule 1,000 mg PO BID 01/23/23 03/19/24 (Cinnamon) fenugreek seed 610 mg capsule 610 mg PO DAILY 01/23/23 03/19/24 ysiicboa-uuxemdbz-eqtzy acid 120 1 tab PO BID 01/23/23 03/19/24 mcg-lutein 100 mcg-herb no.329 tablet (Alive Diabetic Multivitamin) taurine 1,000 mg capsule 1,000 mg PO BID 01/28/23 03/19/24 amoxicillin 875 mg-potassium 1 tab PO BID #14 tabs 03/19/24 clavulanate 125 mg tablet Previous Rx's ?Medication ?Instructions ?Recorded amoxicillin 875 mg-potassium 1 tab PO BID #14 tabs 03/19/24 clavulanate 125 mg tablet Allergies Allergy/AdvReac Type Severity Reaction Status Date / Time No Known Allergies Allergy Unverified 03/19/24 15:37 General Stated Complaint: Cellulitis ZACKERY: 3 Review of Systems All systems reviewed & are unremarkable except as noted in HPI and below Constitutional Constitutional: Denies chills and Denies fever(s) Cardiovascular Cardiovascular: Denies chest pain and Denies dyspnea Respiratory Respiratory: Denies cough and Denies dyspnea Gastrointestinal Gastrointestinal: Denies abdominal pain, Denies nausea and Denies vomiting Musculoskeletal Musculoskeletal: Denies joint swelling Integumentary/Breasts Skin/Breast: Reports erythema Psychiatric Psychiatric: Denies depression Endocrine Endocrine: Denies cold intolerance and Denies heat intolerance Exam Const General: no acute distress Orientation: alert HENMT Head: normal to inspection Ears: external ears normal General nose exam: external nose normal Mouth: moist mucous membranes Eyes General: appearance normal, both eyes and all related structures Neck Neck: normal visual inspection Resp Effort & Inspection: normal respiratory effort and able to speak in complete sentences Cardio Rate: regular rate Neuro General: patient alert and patient oriented x3 Extrem General: full ROM and capillary refill normal Psych Mental Status: mental status grossly normal Course Vital Signs Vital signs: Vital Signs Temperature 36.2 C L 03/19/24 15:31 Pulse 72 03/19/24 15:31 Respiratory Rate 16 03/19/24 15:31 Pulse Oximetry 98 03/19/24 15:31 Temperature 36.2 C L 03/19/24 15:31 Pulse 72 03/19/24 15:31 Respiratory Rate 16 03/19/24 15:31 Respiratory Effort Normal 03/19/24 15:36 Pulse Oximetry 98 03/19/24 15:31 Pain Level 1 03/19/24 15:31 Medical Decision Making 73 yo male with a history of diabetes who comes in with left and right abrasions to the ankle area. He says he started wearing new work boots recently and they have been rubbing up against his ankle bones. Denies any fevers or severe pain but does have swelling of the left ankle with some redness. He is alert and oriented and appears well. He has multiple superficial abrasions on both lower right and left ankles. There is erythema of the right ankle. He has no significant pain he has full range of motion of the ankle with intact sensation and pulses. Suspect abrasions and possibly cellulitis. He has full range of motion of the ankle and there is no severe pain so doubt septic joint. Will place him on Augmentin and have him follow-up with his PCP and return precautions given Differential Diagnosis Differential Diagnosis: abrasion, cellulitis Quality:SDOH Health Related Social Needs: No Data to Display PFSH All Active Problems (Updated 03/19/24 @ 17:12 by Kimani Rodriges MD) Cellulitis of left ankle (Acute) Medical History (Updated 03/19/24 @ 17:12 by Kimani Rodriges MD) Hx of diabetes mellitus Hx of seizure disorder Acute lactic acidosis Surgical History (Updated 01/28/23 @ 14:15 by Ayanna Kemp MD) S/P left inguinal hernia repair (~01/28/23) History of hernia repair age 11 History of appendectomy age 14 Social History Smoking/Tobacco Use Status: Never Smoking risk assessment performed?: Yes Alcohol Intake: current Alcohol Intake frequency: holidays/special occasions only Alcohol type: beer Drug use: Never Substance use type: does not use Housing: house Current gender identity: male Do you feel safe at home: Yes (unable to assess privately) Do you feel safe in your relationship?: Yes
[2024-03-19] MEDS: Bacitracin 30 GM TUBE TP (17:27)
[2024-03-19] MEDS: Amoxicillin 875/Clav. 125 TAB PO (17:27)
[2024-03-19 17:29] VITALS: PULSE 72; RESP 16; TEMP 36.2; O2SAT 98
== END 2024-03-19 17:31 | disposition home or self-care (01) ==
PROVIDERS: Emergency Provider Emergency Medicine; PCP Family Medicine
DX: L03.116 Cellulitis of left lower limb (principal); L03.115 Cellulitis of right lower limb; E11.9 Type 2 diabetes mellitus without complications
CPT/HCPCS: 99283

== ENCOUNTER 2024-05-11 21:10 | Outpatient (REF) | payer OTHER, SELFPAY ==
[2024-05-11 22:07] LABS: Abs Immature Grans 0.03 10^3/uL (0.0-0.06); Absolute Basophil Count 0.02 10^3/uL (0.0-0.2); Absolute Eosinophil Count 0.04 10^3/uL (0.0-0.7); Absolute Lymphocyte Count 1.01 10^3/uL (1.2-3.4); Absolute Monocyte Count 0.78 10^3/uL (0.1-0.8); Absolute Neutrophil Count 5.66 10^3/uL (1.2-6.7); Basophils % 0.3 %; Eosinophils % 0.5 %; HCT 39.4 % (40.0-50.0); HGB 13.2 g/dL (13.5-17.5); Immature Grans % 0.4 %; Lymphocytes % 13.4 %; MCH 28.7 pg (27.0-33.0); MCHC 33.5 % (32.0-36.0); MCV 86 fL (80-95); MPV 9.2 fL (8.0-11.0); Monocytes % 10.3 %; Neutrophils % 75.1 %; Platelet Count 173 10^3/uL (130-400); RDW 14.2 % (11.8-14.1); RDW-SD 44.2 fL; WBC 7.54 10^3/uL (4.4-10.8)
[2024-05-11 22:22] LABS: ALT 20 U/L (16-63); AST 66 U/L (15-37); Albumin 3.7 g/dL (3.4-5.0); Anion Gap 9.7 mmol/L (3-11); BUN 14 mg/dL (7-18); Bilirubin, Total 0.73 mg/dL (0.2-1.0); CO2 29.3 mmol/L (21.0-32.0); CREATININE 0.7 mg/dL (0.70-1.30); Calcium 9.9 mg/dL (8.5-10.1); Chloride 99 mmol/L (98-107); Glucose 197 mg/dL (74-106); Lipase 53 U/L (16-77); Potassium 4.5 mmol/L (3.5-5.1); Sodium 138 mmol/L (136-145)
[2024-05-11 22:23] LABS: Alkaline Phosphatase 1774 U/L (46-116)
[2024-05-11 22:32] LABS: COVID-19 PCR Negative (Negative); Influenza A PCR Negative (Negative); Influenza B PCR Negative (Negative); RSV PCR Negative (Negative)
[2024-05-11 22:35] LABS: Source Nasopharynx
== END 2024-05-11 21:11 | disposition home or self-care (01) ==
LOC: LBN 21:10
PROVIDERS: PCP Family Medicine; Visit Provider Physician Assistant Medical
DX: R11.2 Nausea with vomiting, unspecified (principal)
CPT/HCPCS: 80053; 83690; 87637; 85025

== ENCOUNTER 2024-07-06 11:12 | Outpatient (CLI) | payer OTHER, SELFPAY ==
--- NOTE | 2024-07-06 | DI.RAD_ITS ---
Exam(s) XR HIP LT COMPLETE AP PELVIS EXAM: XR HIP LT COMPLETE AP PELVIS CLINICAL HISTORY: M25.552 PAIN IN LEFT HIP. TECHNIQUE: 2D digital imaging was performed. COMPARISON: CT CT ABDOMEN PELVIS W from 11/21/2022 FINDINGS: Two views No evidence of pelvic nor hip fracture. There is symmetrical degenerative change in both hips with significant relatively symmetrical joint s pace narrowing and femoral head osteophytes noted bilaterally. No osseous lesions. IMPRESSION: Degenerative changes both hips DATA REPOSITORY: RADIATION DOSE DELIVERED:
== END 2024-07-06 11:32 ==
LOC: DI 11:14
PROVIDERS: PCP Family Medicine; Visit Provider Nurse Practitioner Family
DX: M16.0 Bilateral primary osteoarthritis of hip (principal)
CPT/HCPCS: 73502

== ENCOUNTER 2024-08-19 13:39 | Outpatient (REF) | payer OTHER, SELFPAY ==
[2024-08-19 16:06] LABS: ALT 31 U/L (16-63); AST 15 U/L (15-37); Albumin 3.4 g/dL (3.4-5.0); BUN 16 mg/dL (7-18); Bilirubin, Total 0.24 mg/dL (0.2-1.0); CREATININE 0.7 mg/dL (0.70-1.30); Calcium 9.2 mg/dL (8.5-10.1); Chloride 105 mmol/L (98-107); Glucose 188 mg/dL (74-106); Potassium 4.2 mmol/L (3.5-5.1); Sodium 140 mmol/L (136-145); Total Protein 6.9 g/dL (6.4-8.2)
[2024-08-19 16:22] LABS: Alkaline Phosphatase 1620 U/L (46-116)
[2024-08-19 20:00] LABS: GGT 69 U/L (15-85)
== END 2024-08-19 13:40 | disposition home or self-care (01) ==
LOC: NCHCN 13:39
PROVIDERS: PCP Family Medicine; Visit Provider Nurse Practitioner Family
DX: Z01.818 Encounter for other preprocedural examination (principal); R74.8 Abnormal levels of other serum enzymes
CPT/HCPCS: 80053; 82977

== ENCOUNTER 2024-08-25 04:47 | Outpatient (CLI) | payer OTHER, SELFPAY ==
[2024-08-25 08:59] LABS: Hemoglobin A1C 7.8 % (<5.7)
[2024-08-25 09:42] LABS: ALT 24 U/L (16-63); AST 13 U/L (15-37); Albumin 3.6 g/dL (3.4-5.0); Anion Gap 9.3 mmol/L (3-11); BUN 17 mg/dL (7-18); Bilirubin, Total 0.43 mg/dL (0.2-1.0); CO2 27.7 mmol/L (21.0-32.0); CREATININE 0.8 mg/dL (0.70-1.30); Calcium 9.2 mg/dL (8.5-10.1); Chloride 105 mmol/L (98-107); Estimated GFR 94.03 (mL/min/1.73m2); Glucose 146 mg/dL (74-106); Potassium 4.3 mmol/L (3.5-5.1); Sodium 142 mmol/L (136-145); Total Protein 7.1 g/dL (6.4-8.2)
[2024-08-25 09:50] LABS: Alkaline Phosphatase 1764 U/L (46-116)
[2024-08-26 12:32] LABS: PSA, Screening 1541.3 ng/mL (<=6.5)
[2024-08-26 12:44] LABS: Albumin 59.2 % (55.8-66.1); Albumin g/dL 4.2 g/dL (3.6-5.2); Total Protein 7.1 g/dL (6.3-8.2)
[2024-08-26 19:04] LABS: Fructosamine 297 mcmol/L (200 - 285)
== END 2024-08-25 04:48 | disposition home or self-care (01) ==
PROVIDERS: Nurse Practitioner Family; PCP Family Medicine; Visit Provider Student in an Organized Health Care Education/Training Program
DX: M16.12 Unilateral primary osteoarthritis, left hip (principal); Z01.818 Encounter for other preprocedural examination; Z86.39 Personal history of other endocrine, nutritional and metabolic disease; R74.8 Abnormal levels of other serum enzymes
CPT/HCPCS: 36415; 80053; 84153; 82985; 83036; 84165

== ENCOUNTER 2024-08-30 00:21 | Outpatient (CLI) | payer OTHER, SELFPAY ==
--- NOTE | 2024-08-30 05:45 | DI.NM_ITS ---
Exam(s) NM BONE SCAN WHOLE BODY GRP EXAM: NM BONE SCAN WHOLE BODY GRP CLINICAL HISTORY: persistently elevated alk phos,R74.8. TECHNIQUE: Injected Dose: 25 mCi Tc-99m MDP Delayed Images: 2-3 hours. COMPARISON: CT CT ABDOMEN PELVIS W from 11/21/2022 CR XR HIP LT COMPLETE AP PELVIS from 07/06/2024 FINDINGS: Intense uptake within the with cervical, thoracic and lumbar spine. Significant numerous abnormal ar eas of labeling in the pelvis and proximal femurs. Abnormal increased activity also seen in the mid to distal shaft of the right femur. There is a small focus of activity in the mid left femur. Multi ple abnormal areas of labeling in the bilateral ribs as well as bilateral shoulders. Two foci of abn ormal labeling in the skull. IMPRESSION: 1. 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 DATA REPOSITORY:
== END 2024-08-30 00:41 ==
LOC: DI 00:21
PROVIDERS: PCP Family Medicine; Visit Provider Student in an Organized Health Care Education/Training Program
DX: R74.8 Abnormal levels of other serum enzymes (principal); R93.89 Abnormal findings on diagnostic imaging of other specified body structures
CPT/HCPCS: 78306

== ENCOUNTER 2024-09-01 14:13 | Outpatient (REF) | payer OTHER, SELFPAY ==
--- NOTE | 2024-09-01 14:20 | PROST_PTH ---
PATIENT: Richy Del Angel LOC: [facility] U#:[id number] AGE/SX: 74/M ROOM: RE09/01/[address]: Milton Power MD : 1950 BED: DIS: 09/01/2024 SPEC #: [id number] RECD: 09/01/24 16:26 STATUS: CARON HA #: [id number] BREE: 09/01/24 14:[address]: Milton Power DEPT: Surgical Specimen RECD BY: Audelia Pope ENTERED: 09/01/24 16:28 SP TYPE: PROST OTHR DR: Mary Lou Trevino V Tissues: 1 - PROSTATE NEEDLE BIOPSY 2 - PROSTATE NEEDLE BIOPSY 3 - PROSTATE NEEDLE BIOPSY 4 - PROSTATE NEEDLE BIOPSY 5 - PROSTATE NEEDLE BIOPSY 6 - PROSTATE NEEDLE BIOPSY 7 - PROSTATE NEEDLE BIOPSY 8 - PROSTATE NEEDLE BIOPSY 9 - PROSTATE NEEDLE BIOPSY 10 - PROSTATE NEEDLE BIOPSY 11 - PROSTATE NEEDLE BIOPSY 12 - PROSTATE NEEDLE BIOPSY Procedures: GROSS AND MICRO LEVEL 4 Comments: [id number]
== END 2024-09-01 14:14 | disposition home or self-care (01) ==
LOC: LBN 14:13
PROVIDERS: PCP Family Medicine; Visit Provider Urology
DX: C61 Malignant neoplasm of prostate (principal)
CPT/HCPCS: 88305

== ENCOUNTER 2024-11-04 00:53 | Outpatient (CLI) | payer OTHER, SELFPAY ==
[2024-11-04 17:58] LABS: PSA, Diagnostic 4.7 ng/mL (<=6.5)
== END 2024-11-04 00:54 | disposition home or self-care (01) ==
LOC: LBO 00:53
PROVIDERS: PCP Family Medicine; Visit Provider Urology
DX: C61 Malignant neoplasm of prostate (principal)
CPT/HCPCS: 36415; 84153

== ENCOUNTER 2025-02-24 02:24 | Outpatient (CLI) | payer OTHER, SELFPAY | END 2025-02-24 02:25 | disposition home or self-care (01) | PROVIDERS: Student in an Organized Health Care Education/Training Program; PCP Family Medicine; Visit Provider Nurse Practitioner Gerontology | DX: C61 Malignant neoplasm of prostate (principal); Z86.39 Personal history of other endocrine, nutritional and metabolic disease | CPT/HCPCS: 36415; 84153; 82985 ==

== ENCOUNTER 2025-03-13 19:12 | Outpatient (REF) | payer OTHER, SELFPAY ==
[2025-03-13 21:33] LABS: COMMENT (LAB VIEW ONLY) 60.37 mg/dL; Microalb ug/mg Crea 66.8 ug/mg Cr
== END 2025-03-13 19:13 | disposition home or self-care (01) ==
LOC: NCHCN 19:12
PROVIDERS: PCP Family Medicine; Visit Provider Nurse Practitioner Family
DX: E11.9 Type 2 diabetes mellitus without complications (principal)
CPT/HCPCS: 82043; 82570

== ENCOUNTER 2025-03-17 00:30 | Outpatient (CLI) | payer OTHER, SELFPAY ==
[2025-03-17 12:45] LABS: HCT 40.5 % (40.0-50.0); HGB 13.3 g/dL (13.5-17.5); MCH 27.9 pg (27.0-33.0); MCHC 32.8 % (32.0-36.0); MCV 85 fL (80-95); MPV 8.5 fL (8.0-11.0); Platelet Count 219 10^3/uL (130-400); RBC 4.77 10^6/uL (4.36-5.78); RDW 14.1 % (11.8-14.1); RDW-SD 43.8 fL; WBC 5.17 10^3/uL (4.4-10.8)
[2025-03-17 13:23] LABS: Hemoglobin A1C 6.8 % (<5.7)
[2025-03-17 13:28] LABS: Anion Gap 8.5 mmol/L (3-11); BUN 21 mg/dL (7-18); CO2 27.5 mmol/L (21.0-32.0); Calcium 9.4 mg/dL (8.5-10.1); Chloride 105 mmol/L (98-107); Estimated GFR 108.37 (mL/min/1.73m2); Glucose 117 mg/dL (74-106); Potassium 4.1 mmol/L (3.5-5.1); Sodium 141 mmol/L (136-145)
== END 2025-03-17 00:31 | disposition home or self-care (01) ==
LOC: LBO 00:30
PROVIDERS: PCP Family Medicine; Visit Provider Student in an Organized Health Care Education/Training Program
DX: M16.12 Unilateral primary osteoarthritis, left hip (principal); Z86.39 Personal history of other endocrine, nutritional and metabolic disease; Z01.818 Encounter for other preprocedural examination
CPT/HCPCS: 36415; 80048; 85027; 82985; 83036

== ENCOUNTER 2025-03-17 11:30 | Outpatient (CLI) | payer OTHER, SELFPAY ==
--- NOTE | 2025-03-17 11:15 | DI.RAD_ITS ---
Exam(s) XR PELVIS AP EXAM: XR PELVIS AP CLINICAL HISTORY: pre op. TECHNIQUE: 2D digital imaging was performed. COMPARISON: CR XR HIP LT COMPLETE AP PELVIS from 07/06/2024 FINDINGS: Single AP view of the pelvis and hips. No evidence of pelvic nor hip fracture. There is mild degenerative change in the right hip and moderate degenerative changes in the left hip again noted. This is slightly progressed on the left side when compared to June 2024. No osseous lesions. IMPRESSION: Degenerative changes in the hips, more so on the left side. DATA REPOSITORY: RADIATION DOSE DELIVERED:
== END 2025-03-17 11:31 | disposition home or self-care (01) ==
LOC: DIORS 11:31
PROVIDERS: PCP Family Medicine; Visit Provider Physician Assistant
DX: M16.11 Unilateral primary osteoarthritis, right hip (principal)
CPT/HCPCS: 72170

== ENCOUNTER 2025-03-29 05:55 | Day surgery (SDC) | payer OTHER, SELFPAY ==
[2025-03-29] VITALS (17 sets, daily range): BP systolic 86–139; BP diastolic 51–87; PULSE 66–79; RESP 7–19; TEMP 36.2–36.7; O2SAT 93–98; BMI 23.3
[2025-03-29] MEDS: Acetaminophen 500 MG TAB 1000 MG PO ×2 (06:27→06:28)
[2025-03-29] MEDS: Celecoxib 200 MG CAP 400 MG PO (06:27)
[2025-03-29] MEDS: Lactated Ringers 1,000 ML 80 ML IV (06:28)
--- NOTE | 2025-03-29 06:54 | W.ANESPRE ---
General Info Date of Service Date Performed: 03/29/25 Height: 5 ft 9 in Weight: 71.8 kg Body Mass Index (BMI): 23.3 Surgical Procedure: Operation Date: 03/29/25 07:50 Proposed Procedure Side Surgeon p Hip Total Hip Anterior, ACTIS Left Bob Lizama MD Meds Allergies and Home Medications Allergies Allergy/AdvReac Type Severity Reaction Status Date / Time No Known Allergies Allergy Verified 03/29/25 06:17 Home Medication ?Medication ?Instructions ?Recorded Lysulin 6 cap PO DAILY 01/23/23 Pharmapure Sugar Trin[place] 1 tab PO TID 01/23/23 chromium 1,000 mcg tablet 1,000 mcg PO DAILY 01/23/23 cinnamon bark 500 mg capsule 1,000 mg PO BID 01/23/23 (Cinnamon) fenugreek seed 610 mg capsule 610 mg PO DAILY 01/23/23 phmootey-pqmyygsu-zfipu acid 120 1 tab PO BID 01/23/23 mcg-lutein 100 mcg-herb no.329 tablet (Alive Diabetic Multivitamin) saw palmetto 320 mg-pumpkin seed 1 cap PO DAILY 07/07/24 40 mg-Pygeum 10 mg-B6-zinc capsule leuprolide 7.5 mg intramuscular 7.5 mg IM QMONTH 01/26/25 syringe kit (Lupron Depot) taurine 1,000 mg capsule 2 g PO QHS 03/17/25 acetaminophen 500 mg tablet 1,000 mg (2 x 500 mg) PO TID #90 03/29/25 tabs celecoxib 200 mg capsule 200 mg PO BID #60 caps 03/29/25 docusate sodium 100 mg capsule 100 mg PO BID PRN #28 caps 03/29/25 oxycodone 5 mg tablet 5 mg PO Q4H PRN pain #12 tabs 03/29/25 pantoprazole 40 mg tablet,delayed 40 mg PO DAILY #14 tabs 03/29/25 release rivaroxaban 10 mg tablet (Xarelto) 10 mg PO DAILY #35 tabs 03/29/25 Current Visit Medications: Current Medications Generic Name Dose Route Start Last Admin Trade Name Freq PRN Reason Stop Dose Admin Acetaminophen 1,000 mg 03/29/25 06:00 03/29/25 06:28 Acetaminophen 500 Mg Tab PO 03/29/25 23:59 1,000 mg PREOP GIAN Administration Celecoxib 400 mg 03/29/25 06:00 03/29/25 06:27 Celecoxib 200 Mg Cap PO 03/29/25 23:59 400 mg PREOP GIAN Administration Ringer's Solution 1,000 mls @ 80 mls/hr 03/29/25 06:00 03/29/25 06:28 IV 03/29/25 23:59 80 mls/hr INFUSION GIAN Administration Cefazolin Sodium/Dextrose 2 gm in 50 mls @ 100 mls/hr 03/29/25 06:00 Ancef Duplex IVPB 03/29/25 23:59 PREOP GIAN Tranexamic Acid/Sodium Chloride 1,000 mg in 100 mls @ 600 mls/hr 03/29/25 06:00 IVPB 03/29/25 23:59 PREOP GIAN IV Miscellaneous Supplies 1 each 03/29/25 06:00 Iv Access IV 03/29/25 23:59 DIRECTED GIAN Sodium Chloride 0 ml 03/29/25 06:00 Normal Saline Flush 10 Ml Syr IV 03/29/25 23:59 PRN PRN Sodium Chloride 0 ml 03/29/25 06:00 Normal Saline 10 Ml Vial IJ 03/29/25 23:59 DIRECTED PRN Sterile Water 0 ml 03/29/25 06:00 Water,Injection,Sterile 10 Ml Vial IJ 03/29/25 23:59 DIRECTED PRN PFSH Active Problems Active Problems: Problem Status Onset Code Prostate cancer Chronic C61 Alkaline phosphatase elevation Acute R74.8 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 He took phenytoin from 6190-0253 and then stopped taking. He experienced a second seizure in 1997 and pt self prescribed Taurine 1000mg BID. Pt reports he is not followed by a HCP/MD for this. Pt reports sleep seizure disorder is well controlled and he is not aware if he has experienced a sleep seizure since 1997 and since taking Taurine 1000mg BID. Surgical History Surgical History S/P left inguinal hernia repair (~01/28/23) History of hernia repair age 11 History of appendectomy age 14 Tobacco Smoking/Tobacco Use Status: Never Passive smoking exposure: No Alcohol Alcohol Intake: current Alcohol intake frequency: holidays/special occasions only Alcohol type: beer Substance Use Substance use: Never Substance use type: does not use Vital Signs and Lab Results Vital Signs Most Recent Vital Signs in EMR: Most Recent Vital Signs Temp Pulse Resp BP Pulse Ox 36.3 C L 79 18 139/81 97 03/29/25 05:55 03/29/25 05:55 03/29/25 05:55 03/29/25 05:55 03/29/25 05:55 Point of Care Results Point of Care Results: Finger Stick Blood Glucose 143 03/29/25 06:21 Lab Results Complete Blood Count: WBC, (4.4-10.8) 5.17 10^3/uL 03/17/25, 12:41 RBC, (4.36-5.78) 4.77 10^6/uL 03/17/25, 12:41 Hgb, (13.5-17.5) 13.3 g/dL L 03/17/25, 12:41 Hct, (40.0-50.0) 40.5 % 03/17/25, 12:41 Plt Count, (130-400) 219 10^3/uL 03/17/25, 12:41 Complete Metabolic Panel: Sodium, (136-145) 141 mmol/L 03/17/25, 12:41 Potassium, (3.5-5.1) 4.1 mmol/L 03/17/25, 12:41 Chloride, (98-107) 105 mmol/L 03/17/25, 12:41 Carbon Dioxide, (21.0-32.0) 27.5 mmol/L 03/17/25, 12:41 BUN, (7-18) 21 mg/dL H 03/17/25, 12:41 Creatinine, (0.70-1.30) 0.5 mg/dL L 03/17/25, 12:41 Est GFR (CKD-EPI 2020), (mL/min/1.73m2) 108.37 03/17/25, 12:41 Calcium, (8.5-10.1) 9.4 mg/dL 03/17/25, 12:41 Glucose, (74-106) 117 mg/dL H 03/17/25, 12:41 Hemoglobin A1c, (<5.7) 6.8 % H 03/17/25, 12:41 Anesthesia Assessment and Plan Anesthesia History Personal History: No History of Anesthesia Complications Family History: No Family History of Anesthesia Complications Exercise Tolerance Exercise Tolerance: Metabolic Equivalents>4 Pertinent Negatives Pertinent Negatives: No Symptoms of GERD, No Major Cardiovascular Symptoms or Complaints, No Major Pulmonary Symptoms or Complaints and No History of CVA/TIA Cardiac & Pulmonary Exam Cardiac Exam: Normal S1/S2 Heart Sounds Pulmonary Exam: Clear Bilateral Breath Sounds Implantable Cardiac Device Does patient have a Pacemaker or an ICD?: No Airway Exam Known Difficult Airway: No Mallampati Class: 3 Mouth Opening: Normal (> 3cm) Thyromental Distance: Greater than 3 cm Neck Range of Motion: Full ROM Neck Circumference: Normal Teeth Condition: Generalized Poor Dentition Airway Comments: many missing teeth ASA Classification ASA Score: ASA 2 Emergency Case?: No NPO Status NPO Status: NPO Clears >2 hours, Solids >8 hours Anesthesia Plan Resuscitation Status: Full Code Anesthesia Technique: Spinal Anesthesia Airway Planned: Natural Airway Monitors Used: Standard Monitors Preoperative Comments:: Seizure disorder controlled with nightly taurine, no seizure symptoms since 1997.
--- NOTE | 2025-03-29 07:04 | PDOC.DSDIS_ITS ---
Date of service: 03/29/25 Discharge Plan Disposition Patient Disposition: Home Condition: Good Discharge Details Reason For Visit: L THR Attending Provider: Bob Lizama Primary Care Provider: Mary Lou Trevino V Home Meds and New Rx's Prescriptions: New acetaminophen 500 mg tablet 1,000 mg PO TID Qty: 90 3RF celecoxib 200 mg capsule 200 mg PO BID Qty: 60 0RF docusate sodium 100 mg capsule 100 mg PO BID PRNQty: 28 0RF pantoprazole 40 mg tablet,delayed release (DR/EC) 40 mg PO DAILY Qty: 14 0RF oxycodone 5 mg tablet 5 mg PO Q4H MDD 6 tabs PRN (Reason: pain) Qty: 12 0RF Xarelto 10 mg tablet 10 mg PO DAILY Qty: 35 0RF Rx Instructions: for 35 days Continued Lupron Depot 7.5 mg syringe kit 7.5 mg IM QMONTH saw pal-pumpkin ge-fvrk-S3-Zn 320-40-10-5 mg capsule 1 cap PO DAILY Lysulin 6 cap PO DAILY chromium 1,000 mcg Tablet 1,000 mcg PO DAILY cinnamon bark [Cinnamon] 500 mg Capsule 1,000 mg PO BID Alive Diabetic Multivitamin 120-100 mcg Tablet 1 tab PO BID fenugreek seed 610 mg Capsule 610 mg PO DAILY Pharmapure Sugar Trin[place] 1 tab PO TID taurine 1,000 mg capsule 2 g PO QHS Discharge Instructions Additional Instructions: Total Hip Discharge Instructions Activity: The most important activity is to walk. You should try to take short walks a few times a day. You have no restrictions on movement or positioning, but do not try to force what you do. You will find some stiffness and weakness with hip flexion (lifting your knee). Do not try to strengthen this too early, continue to practice walking and stairs and this will come. - Outpatient physical therapy can be helpful to help return you to a normal gait and improve your flexibility and strength. This can start around 2 weeks. For some patients, it?s not necessary. Usually this is determined at the time of discharge or at the first post-operative visit. - You should wear the STEVEN hose on both legs for 2 weeks. Dressing: Keep the surgical dressing in place for at least one week. After the first week it may be removed and replace with light gauze and tape or nothing. It may get wet after 3 days but avoid soaking the dressing. If it gets wet, just lightly pat dry. It is important to always keep some gauze between skin folds, especially when you are sitting. Spend some time with the wound exposed when you are lying flat as the incision does wrinkle onto itself. Medications: - You should take Tylenol and an anti-inflammatory Celebrex as your primary pain control medications. If the Celebrex is too expensive or not covered, please call the office for another alternative (Advil/Ibuprofen or Naproxen/Aleve). - You have been prescribed a stronger pain medication Oxycodone for breakthrough pain, take as needed as prescribed. - You have also been prescribed a stomach acid reduction agent Pantoprozole to help reduce stomach acid and reflux. - You will be taking Xarelto for DVT prevention unless instructed otherwise which you will start tonight. - If you have constipation you should take Colace or Miralax (both xenv-xuc-viytpcl). It takes most people 3-4 days to have a bowel movement. Follow-up: 2 weeks If you have any acute concerns or questions, please do not hesitate to contact the office at [phone]. You may contact Dr. Lizama with any questions after hours through the hospital at [phone] or on his cell phone at [phone]. Referrals: Bob Lizama MD [ [facility] STAFF PHYSICIAN, Orthopaedic Surgical] Equipment/Supplies: Walker Activity:: Activity as Tolerated Shower/Bathe:: 72 hours Diet:: As Tolerated Discharge Orders Discharge Orders: Discharge Order (Routine); Ordered 03/29/25 Ordered By: Sebas Prieto DS: Diagnosis Discharge Diagnosis (1) Degenerative joint disease of left hip: Status: Chronic
[2025-03-29] MEDS: ceFAZolin 2 GM/50 ML BAG IVPB (07:47)
[2025-03-29] MEDS: TRANEXAMIC ACID/SOD. CHL. 1,000 MG/100 ML BAG 600 MG IVPB (07:55)
--- NOTE | 2025-03-29 08:51 | DI.RAD_ITS ---
Exam(s) XR HIP LT IN OR EXAM: XR HIP LT IN OR CLINICAL HISTORY: Degenerative joint disease of left hip TECHNIQUE: 2D and realtime digital imaging was performed. CONTRAST MATERIAL: Refer to procedure report. COMPARISON: CR XR PELVIS AP from 03/17/2025 FINDINGS: Fluoroscopy was provided for Dr. Lizama during the performance of a left total hip arthroplasty. Please refer to the procedure report for complete details. Ka,r=3.44 mGy IMPRESSION: RADIATION DOSE DELIVERED: 0.0 0.0 0
--- NOTE | 2025-03-29 08:52 | ROE_ITS ---
Operative Note Operative Note PRE-OP DIAGNOSIS: Left Hip Osteoarthritis POST-OP DIAGNOSIS: same PROCEDURE: Left Anterior Total Hip Arthroplasty with Intraoperative Navigation SURGEON: Bob Lizama CONTROLLER OPERATIONS AND HR MANAGER: Sebas Prieto ANESTHESIA TYPE: Spinal Refer to Anesthesia Record ESTIMATED BLOOD LOSS: 100 PATHOLOGY: none sent TOURNIQUET TIME: 0 COMPLICATIONS: None Patient was transported to: PACU Patient's condition: stable Implants: 1. Depuy [place] Acetabular Component, 58mm 2. Depuy Acetabular Liner, [id number] 3. Depuy Actis Standard Collared Femoral Stem, Size 6 4. Depuy Altrx Ceramic Femoral Head, Size 36+8.5mm Indications: I have seen Maninder in clinic for symptoms of hip arthritis, confirmed with radiographic findings. He has exhausted nonoperative methods and was having significant limitations in daily function and desired better function and less pain. I discussed the technical details of a hip replacement. I explained the risks of the procedure to include, but not limited to, bleeding, infection, pain, stiffness, fracture, damage to nerves and vessels, damage to muscles and tendons, loosening, instability, leg length inequality, need for repeat procedure, blood clot and cardiopulmonary demise. Despite these risks, Maninder elected to proceed. Findings: There was significant signs of arthritis throughout the hip. Procedure Description: Maninder was greeted in the preoperative holding area where the correct side was identified and marked. The consent was reviewed with the patient and signed. The history and physical was updated. All questions were answered. He was taken back to the operating room. A spinal anesthestic was then administered. The feet were wrapped with cast padding and Coban and then placed into the boot liners and then into the boots. Care was taken to protect the skin and make sure the heels were fully down and the boots were stable. The patient was then positioned onto the HANA table. Both legs were held in a neutral position. SCDs were applied. The patient was then slid down onto a peroneal post. Prophylactic antibiotics in the form of Cefazolin were administered. 1g of Tranxemic Acid was given intravenously within 30 minutes of incision. The left leg was then prepped with Chloraprep and draped in a standard fashion. A second prep with Chloraprep was performed prior to placement of a shower-curtain type drape with Iodine impregnated skin protection. A timeout to confirm correct identity, side and site, procedure, allergies, anesthesia, and medical concerns was performed. An obliquely oriented incision was made starting lateral to the ASIS and running distal over the Tensor Fascia Dai (TFL) muscle belly toward the fibular head, approximately 10cm. The skin and soft tissue was dissected sharply, through Francisco?s fascia, and to the fascia of the TFL. With the fascia and superior border of the IT band identified, the fascia was incised with a new knife just above any perforators from the IT band. The TFL muscle belly was bluntly dissected away from the fascia and moved laterally. The fat between TFL and rectus was identified to ensure the dissection was not within the TFL. Blunt dissection created space between abductors and the capsule and retractor was placed over the lateral femoral neck. The fibers of the rectus femoris tendon were identified and these were freed from the anterior capsule. A second cobra retractor was placed around the medial femoral neck. The TFL was further retracted laterally to show the deep fascia. Careful dissection through this layer identified three main crossing vessels of the lateral femoral circumflex. These were cauterized in multiple locations and then cut without any noticeable bleeding. The TFL was further released bluntly from the deep fascia to expose anterior hip capsule and fat The soft tissue orthopaedic retractor was then placed beneath the TFL and against sartorius and medial soft tissues to protect and retract the soft tissues. A T-capsulotomy was then performed starting at the superior lateral acetabulum and moving distally to the intertrochanteric ridge. These capsular flaps were tagged with a No. 1 Vicryl and elevated from within. The capsular flaps were released to the shoulder of the lateral neck and to the lesser trochanter to give excellent visualization of the proximal femur. A neck osteotomy was performed using an oscillating saw based on preoperative templates. This cut started in the shoulder and of the lateral neck and exited medially. The saw was at all times directed medially to avoid injury to the greater trochanter. Gross traction was applied to the leg and the osteotomy opened. The femoral head was removed with a corkscrew, making sure to protect the TFL on its exit. Traction was released after head removal. This was measured on the back table to determine the starting reamer size. Portions of the rectus obscuring visualization were minimally elevated off the superior acetabulum. An anterior retractor was placed over the anterior wall between capsule and labrum and attached to the Gripper retraction system. The femur was rotated to 90 degrees and medial capsule was fully released until the lesser trochanter was palpable and visible; the femur was returned to 30 degrees. A posterior retractor was placed similarly between capsule and labrum. This provided excellent visualization. The contents of the cotyloid fossa were removed with electrocautery and the labrum was removed with a knife. There was a notable floor osteophyte. There was significant chondromalacia of the superior acetabulum. Acetabular reaming began with a 53mm reamer. This first reaming was directed anterior to posterior and medial to get down to the true floor. This was inspected and reamed until the true floor was reached. The anterior retractor was then released and entry and exit was provided by traction on the capsular flaps. I then reamed sequentially up to a 58mm reamer where good fit was obtained. The larger reamers were oriented based on anatomical reference of the anterior and lateral giles to ensure proper abduction and anteversion. Positioning and size was confirmed with the fluoroscopy. A 58mm Depuy [place] acetabular component was selected. The acetabulum was reamed around the periphery with the selected acetabular size to prevent a rim fit. The deep tissues were irrigated. The acetabular component was then impacted in a position of about 40-45 degrees of abduction and 15-20 degrees of anteversion, using the patient?s anatomy as the ultimate landmark. Fluoroscopy was used to confirm this. There was excellent file conversion operator of the acetabular component and the inserting handle was removed. The acetabular liner, Depuy [id number] polyethylene liner, was inserted and lined up with the tines of the acetabular component. There was no soft tissue interposition. The liner was then impacted into position and confirmed to be well-seated. A portion of the kenia-articular cocktail was then injected around the acetabulum into the capsule and periosteum. This cocktail consisted of 123mg of Ropivacaine, 0.25mg of Epinephrine, 0.04mg of Clonidine, and 15mg of Ketorolac, diluted to 50cc. The leg was rotated to 120 degrees. Any remaining medial capsule was released until the lesser trochanter was easily palpable. A retractor was placed medially. The lateral capsule was further released into the shoulder to allow access to the greater trochanter. A Lemus retractor was placed over the greater trochanter which allowed the trochanter to flip in front of the capsule for excellent exposure. The leg was brought down into maximal extension and 20 degrees of adduction while ensuring there was no impingement on the acetabulum. Any remnant capsule within the trochanter was released. Piriformis and obturator externis were identified and protected. There was excellent access to the proximal femur. The lateral neck remnant was removed with a rongeur. A blunt canal probe was used to identify the canal and trajectory for later broaching. A box osteotome initiated the broach course. A small curved rasp and a curved curette were used to work laterally. Broaching then began with a starter Actis broach. This was inserted manually around the trochanter and into the canal before mallet blows. The broach was seated to a few millimeters below the cut level based on the neck cut and the preoperative template. Sequential broaching was continued with the CorkCRM pneumatic broaching device until a tight fit was obtained with good rotational control of the femur. A trial standard neck was inserted along with a +1.5 trial head. The leg was brought out of extension and adduction and then reduced with traction and internal rotation. The leg was stable anteriorly in a position of 30 degrees of extension and 90 degrees of external rotation. Fluoroscopy was used to ensure there was no fracture and the stem was seated well. Leg lengths were checked with an AP pelvis and pelvic reference points. Thwapr navigation system was used to confirm appropriate positioning and leg length and offset. Slightly undercorrected leg length and offset and thus I went to a +8.5 mm head. Once content with the desired offset and leg lengths, the leg was brought back into extension, external rotation and adduction. The periosteum and surrounding tissue was injected with remaining portion of the kenia-articular cocktail. The proximal femur was irrigated as well as the deep tissues. The [employer] BitPassis standard collared stem, size 6, was then manually inserted into the proximal femur making sure to control rotation. It was then malleted into position with light blows, giving breaks to allow bone expansion and decrease risk of fracture. The selected Depuy Altrx Ceramic Head, size 36+8.5mm, was then placed onto the clean and dry trunnion and secured with impaction onto the tapered fit. The leg was brought back out of extension and adduction and reduced with traction and internal rotation. Stability was confirmed with no shuck at 90 degrees of external rotation and 30 degrees of extension. No impingement through range of motion arc. Final x-ray images were obtained with fluoroscopy to confirm adequate positioning and no intraoperative fracture. The deep tissues were thoroughly irrigated with Surgiphor, betadine solution. This was allowed to sit in the wound for 3 minutes before being thoroughly irrigated out with normal saline. The capsule was then reapproximated with the previously placed sutures. The TFL fascia was finally closed with a No. 2 Stratafix, barbed suture. Deep tissues were then reapproximated with 0 Vicryl and a running 2-0 Vicryl. The skin was closed with a running 4-0 Monocryl in a subcuticular fashion. This was reinforced with skin glue. A Mepilex silver dressing was applied. At the end of the case, all counts were correct. Maninder was transferred to the hospital bed without difficulty and suffering no apparent complication. He has a good prognosis. Physical therapy will start today and without restrictions, weight-bearing as tolerated. Xarelto 10mg daily will be used for DVT prophylaxis. Date of Procedure: 03/29/25
[2025-03-29] MEDS: oxyCODONE 5 MG TAB PO (10:21)
--- NOTE | 2025-03-29 10:24 | W.ANESPOSTOP ---
Postoperative Evaluation Date, Time and Location Date Performed: 03/29/25 Time Performed: 10:25 Patient Location: Day Surgery Unit Vital Signs Most Recent Imported Vital Signs: Most Recent Vital Signs Temp Pulse Resp BP Pulse Ox 36.2 C L 79 18 128/75 96 03/29/25 09:59 03/29/25 09:59 03/29/25 09:59 03/29/25 09:59 03/29/25 09:59 Pain Score Most Recent Pain Score: Most Recent Pain Score Pain Level 0 03/29/25 09:59 Assessment Mental Status: Awake (Alert & Oriented to Patient Baseline) Airway and Respiratory Function: Patent airway with normal (patient baseline) respiratory exam Cardiovascular Function: Hemodynamically Stable Hydration Status: Adequately Hydrated Nausea & Vomiting: No Nausea or Vomiting Pain: Pt. Denies Any Pain Peripheral Nerve Block: Patient did not receive a nerve block
--- NOTE | 2025-03-29 14:22 | IN_ITS ---
PT Notes Visit Reasons: L THR Physical Therapy Day Surgery Initial Evaluation Date: 03/29/2025 Referring Doctor: Dr. Lizama, GRIS Agustin PT Orders: PT CONSULT: Status post Ortho surgery Precautions: Weightbearing as tolerated left lower extremity Patient Profile/Admitting Diagnosis Richy is a 75-year-old male presenting status post elective left DIEGO under spinal anesthesia by Dr. Lizama on 03/29/2025. Postop uncomplicated PMHX: Prostate cancer (Chronic) Alkaline phosphatase elevation (Acute) Degenerative joint disease of right hip (Chronic) Currently asymptomaticDegenerative joint disease of left hip (Chronic) Medical History (Updated 10/21/24 @ 08:33 by Milton Power MD) Elevated PSA Hx of diabetes mellitus Hx of seizure disorder Acute lactic acidosis Surgical History S/P left inguinal hernia repair (~01/28/23) History of hernia repair age 11 History of appendectomy age 14 Social History/Home Situation: Patient resides with in a single-family home with ramp to enter. Patient independent with all mobility without device, independent ADLs. Patient drives and is employed full-time. Equipment Owned/DME: Cane Subjective: Patient reports he is hopeful to return to work with less discomfort Objective: [] General Observation: Patient presented semireclined on stretcher with ice pack to left hip, visiting Mental Status: Alert and oriented x 4, cooperative, able to follow instructions, agreeable to participate in assessment Pain: Left hip 3/10 ROM: [] BUE: WNL Right Lower Extremity: WNL Left Lower Extremity: Hip flexion 95 degrees, hip abduction 12 degrees internal rotation to neutral hip extension to neutral, knee and ankle within normal limits Strength: [] Right Upper Extremity: 5/5 Left Upper Extremity: 5/5 Right Lower Extremity: 5/5 Left Lower Extremity: Hip grossly 3 -/5 due to pain, knee 3/5 ankle 3/5 Sensation: Intact light touch pain proprioception Bed Mobility/Transfers: [] Supine to sit SBA Sit to stand SBA Stand to sit SBA Bed to chair SBA with FWW Gait:Ambulated with FWW 150 feet SBA reciprocal pattern level surfaces Stairs: Two 6 inch steps and three 4 inch steps with bilateral rails SBA with cues for sequencing step to pattern Balance: [] Static Sitting: Dynamic Sitting: Good S normaltatic Standing: Good Dynamic Standing: Good Special Tests: [] Mobility Limitations Standardized Measure [] [facility] 6 clicks Basic Mobility Inpatient Short Form: [] Raw Score: 23 CMS Score:11.20%deficit Informed Consent/Education: Patient instructed in purpose of PT consult. Treatment: [id number] DIEGO packet containing exercise protocol has been given to patient. Education and training on initial set of 5 reps of exercises that can be done at home have been completed with patient. Assessment: Patient presents with clinical signs and symptoms consistent with current/admitting diagnoses that have resulted to mobility limitations, gait instability, generalized weakness, and impairment of motor control as demonstrated by the following impairment level findings: 1. Decreased strength to left hip major muscle groups 2. Impaired standing balance 3. Limitation of joint range of motion in left hip 4. Pain left hip 5. Impaired functional activity tolerance Impairments are contributing to the following functional limitations: 1. Inability to safely ambulate without assistive device 2. Increase completion time for mobility ADL performance 3. Increased fall risk 4. Difficulty performing stairs without assistive device Patient is assessed as a low complexity based on the following: History: 75-year-old male with impairment level findings, functional limitations, and past medical history as indicated above Examination: Demonstrable impairment in strength, balance, and mobility level with underlying impairments and functional limitations as documented above Presentation: Stable Decision Making: Low Goals: N/A. PT evaluation and 1-2 treatment sessions only for functional mobility training using recommended AD and for HEP instruction. Plan of Care/Treatment Plan: N/A. PT evaluation and 1-2 treatment session only for functional mobility training using recommended AD and for HEP instruction. DISCHARGE RECOMMENDATIONS: Home with HEP and follow-up with Dr. Lizama TREATMENT CODE/TIME: [id number], [id number] Thank you for the opportunity to participate in the care of this patient. Meri Monique, PT [facility]
== END 2025-03-29 12:07 | disposition home or self-care (01) ==
PROVIDERS: PCP Family Medicine; Visit Provider Student in an Organized Health Care Education/Training Program
PROC: (CPT 27130; principal; 2025-03-29 07:30)
DX: M16.12 Unilateral primary osteoarthritis, left hip (principal)
CPT/HCPCS: 27130; 20985; 97110; 97161; 73501; C1776; J0690; J1100; J2003; J2250; J2401; J2405; J2704

== ENCOUNTER 2025-04-13 14:01 | Outpatient (CLI) | payer OTHER, SELFPAY ==
--- NOTE | 2025-04-13 10:00 | DI.RAD_ITS ---
Exam(s) XR HIP LT COMPLETE AP PELVIS EXAM: XR HIP LT COMPLETE AP PELVIS CLINICAL HISTORY: 1ST POST OP S/P L DIEGO. TECHNIQUE: 2D digital imaging was performed. Two images were obtained. AP pelvis and lateral left hip views were obtained. COMPARISON: CR XR HIP LT COMPLETE AP PELVIS from 07/06/2024 CR XR PELVIS AP from 03/17/2025 XA XR HIP LT IN OR from 03/29/2025 FINDINGS: BONES: There are stable post operative changes of a left total hip arthroplasty present. No fracture or dislocation. JOINTS: The orthopedic hardware is in good position. No evidence of hardware loosening. There are moderate degenerative changes seen in the right hip. SOFT TISSUE: Atherosclerotic calcification is present. IMPRESSION: Stable left total hip arthroplasty. DATA REPOSITORY: RADIATION DOSE DELIVERED:
== END 2025-04-13 14:02 | disposition home or self-care (01) ==
LOC: DIORS 14:01
PROVIDERS: PCP Family Medicine; Visit Provider Physician Assistant
DX: Z96.642 Presence of left artificial hip joint (principal)
CPT/HCPCS: 73502

== ENCOUNTER 2025-06-09 02:35 | Outpatient (CLI) | payer OTHER, SELFPAY | END 2025-06-09 02:36 | disposition home or self-care (01) | LOC: LBO 02:35 | PROVIDERS: PCP Family Medicine; Visit Provider Nurse Practitioner Gerontology | DX: C61 Malignant neoplasm of prostate (principal) | CPT/HCPCS: 36415; 84153 ==